=== PATIENT | female | born 1980 | race Two or more races ===

== ENCOUNTER 2016-08-15 17:48 | Emergency (ER) | payer OTHER ==
[~2016-08-15 17:48] MED LIST: ALBUAER2 INH
[2016-08-15 17:57] VITALS: Ht 152.4 cm
[2016-08-15] MEDS ORDERED: ACET-1256 PO (20:15)
[2016-08-15] MEDS ORDERED: NAPR500T3 PO (20:15)
[2016-08-15] MEDS ORDERED: VNTHFA/IN INH (20:15)
[2016-08-15] MEDS ORDERED: SODIUM CHLORIDE 0.9% 1000ML 1,000 ML IV ONE (20:32)
[2016-08-15] MEDS ORDERED: KETOROLAC TROMETHAMINE 30 MG/ML VIAL IV STA (20:32)
[2016-08-15] MEDS ORDERED: SODIUM CHLORIDE 0.9% 1000ML 1,000 ML IV STA (20:32)
--- NOTE | 2016-08-15 20:33 | EMERGENCY ROOM VISIT NOTE ---
History Report prepared by Marcel: Ochoa Bravo Under the Supervision of: Dr. Tyson Asher M.D. First contact with patient: 20:23 Chief Complaint: BACK PAIN Stated Complaint: CHILLS AND ENTIRE BODY ACHES LOWER BACK History of Present Illness The patient is a 36 year old female who presents to the Emergency Room with complaints of pain in her lower back and bodily chills that began this afternoon after a falling episode. The patient states that she fell in the shower this afternoon after experiencing a coughing fit. Following the fall she started to experience the pain in her lower back. She rates this pain as a 7/10 in severity. She is also currently experiencing some tenderness in her abdomen. The patient states that she started to experience a cough and cold symptoms 1.5 weeks prior to arrival, before she left on a trip to [facility]. She returned back form [facility] 9 days prior to this visit. She is still experiencing the congestion at this time. She states that one risk from traveling to [facility] is Malaria. She took Tylenol this afternoon for pain. The patient has had diarrhea today as well. 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 A total of 10 systems reviewed and were otherwise negative. Past Medical & Surgical Medical Problems: (1) Asthma (2) Lupus Family History Patient reports no known family medical history. Social History Smoking Status: Never Smoker Alcohol Use: none Marital Status: Housing Status: lives with significant other Occupation Status: unemployed Current/Historical Medications Scheduled Amoxicillin (Amoxil), 500 MG PO TID Scheduled PRN Acetaminophen (Tylenol), 1 TAB PO BID PRN for Pain or Fever Albuterol Hfa (Ventolin Hfa), 2 PUFFS INH BID PRN for SOB/Wheezing Naproxen (Naproxen), 500 MG PO BID PRN for Pain Allergies Coded Allergies: Pineapple (Verified Allergy, Intermediate, RASH, 09/01/15) Physical Exam Vital Signs Date Time Temp Pulse Resp B/P Pulse Ox O2 Delivery O2 Flow Rate FiO2 08/16/16 00:17 78 20 115/69 98 08/15/16 23:10 36.8 86 16 96/61 98 Room Air 08/15/16 21:28 36.8 86 16 107/70 97 Room Air 08/15/16 20:54 99 Room Air 08/15/16 20:00 66 16 116/77 99 Room Air 08/15/16 17:57 37.7 108 20 117/87 95 Room Air Physical Exam GENERAL: Patient is in no acute distress. HEENT: No acute trauma, normocephalic atraumatic, mucous membranes moist, no nasal congestion, no scleral icterus. NECK: No stridor, no adenopathy, no meningismus, trachea is midline. LUNGS: Clear to auscultation bilaterally, no wheeze, no rhonchi, breath sounds equal. HEART: Tachycardiac with a subtle systolic murmur, regular rate and rhythm. ABDOMEN: Soft, tender to both lower quadrants, bowel sounds positive, no hernias , no peritonitis. BACK: Tenderness diffusely over lumbar spine and musculature. No bony step off appreciated. EXTREMITIES: No cyanosis or edema, full range of motion of all the joints without pain or difficulty, no signs for acute trauma. NEUROLOGIC: Oriented x 3, no acute motor or sensory deficits, no focal weakness. SKIN: No rash, no jaundice, no diaphoresis. Medical Decision & Procedures ER Provider Diagnostic Interpretation: X ray results and stated below per my interpretation and radiologist interpretation. Other radiology results and stated below per my review and radiologist interpretation: CHEST ONE VIEW PORTABLE CLINICAL HISTORY: Sepsis. Chills. Lower back pain. COMPARISON STUDY: Chest radiograph February 14, 2014. FINDINGS: Lung volumes are normal. Lungs are clear. There is no pneumothorax or pleural effusion. Cardiac size is normal. Mediastinal contours are normal. There is no evidence of pulmonary edema. There may be minimal left upper lung scarring. IMPRESSION: No acute cardiopulmonary findings. Electronically signed by: Foster Reid M.D. 08/15/2016 8:47 PM Dictated Date/Time: 08/15/2016 8:46 PM Laboratory Results 08/15/16 20:55 Red Blood Count 4.21, Mean Corpuscular Volume 87.4, Mean Corpuscular Hemoglobin 29.5, Mean Corpuscular Hemoglobin Concent 33.7, Mean Platelet Volume 9.3, Neutrophils (%) (Auto) 82.4, Lymphocytes (%) (Auto) 12.2, Monocytes (%) (Auto) 4.5, Eosinophils (%) (Auto) 0.1, Basophils (%) (Auto) 0.4, Neutrophils # (Auto) 18.79, Lymphocytes # (Auto) 2.77, Monocytes # (Auto) 1.02, Eosinophils # (Auto) 0.02, Basophils # (Auto) 0.09 08/15/16 20:55 Test 08/15/16 20:55 08/15/16 21:10 08/15/16 21:54 08/15/16 23:20 White Blood Count 22.77 K/uL (4.8-10.8) Red Blood Count 4.21 M/uL (4.2-5.4) Hemoglobin 12.4 g/dL (12.0-16.0) Hematocrit 36.8 % (37-47) Mean Corpuscular Volume 87.4 fL (80-100) Mean Corpuscular Hemoglobin 29.5 pg (25-34) Mean Corpuscular Hemoglobin Concent 33.7 g/dl (32-36) Platelet Count 389 K/uL (130-400) Mean Platelet Volume 9.3 fL (7.4-10.4) Neutrophils (%) (Auto) 82.4 % Lymphocytes (%) (Auto) 12.2 % Monocytes (%) (Auto) 4.5 % Eosinophils (%) (Auto) 0.1 % Basophils (%) (Auto) 0.4 % Neutrophils # (Auto) 18.79 K/uL (1.4-6.5) Lymphocytes # (Auto) 2.77 K/uL (1.2-3.4) Monocytes # (Auto) 1.02 K/uL (0.11-0.59) Eosinophils # (Auto) 0.02 K/uL (0-0.5) Basophils # (Auto) 0.09 K/uL (0-0.2) RDW Standard Deviation 40.7 fL (36.4-46.3) RDW Coefficient of Variation 12.6 % (11.5-14.5) Immature Granulocyte % (Auto) 0.4 % Immature Granulocyte # (Auto) 0.08 K/uL (0.00-0.02) Prothrombin Time 11.3 SECONDS (9.0-12.0) Prothromb Time International Ratio 1.1 (0.9-1.1) Activated Partial Thromboplast Time 29.5 SECONDS (21.0-31.0) Partial Thromboplastin Ratio 1.1 Anion Gap 7.0 mmol/L (3-11) Est Creatinine Clear Calc Drug Dose ml/min Estimated GFR () 121.7 Estimated GFR (Non- 105.0 BUN/Creatinine Ratio 12.3 (10-20) Calcium Level 8.9 mg/dl (8.5-10.1) Total Bilirubin 0.3 mg/dl (0.2-1) Aspartate Amino Transf (AST/SGOT) 12 U/L (15-37) Alanine Aminotransferase (ALT/SGPT) 18 U/L (12-78) Alkaline Phosphatase 116 U/L (45-117) Total Protein 8.1 gm/dl (6.4-8.2) Albumin 3.4 gm/dl (3.4-5.0) Globulin 4.7 gm/dl (2.5-4.0) Albumin/Globulin Ratio 0.7 (0.9-2) Bedside Lactic Acid Venous 1.38 mmol/L (0.90-1.70) Influenza Type A Antigen Neg for Influ A (NEG) Influenza Type B Antigen Neg for Influ B (NEG) Urine Color YELLOW Urine Appearance CLEAR (CLEAR) Urine pH 6.5 (4.5-7.5) Urine Specific Clear > 1.045 (1.000-1.030) Urine Protein NEG (NEG) Urine Glucose (UA) NEG (NEG) Urine Ketones NEG (NEG) Urine Occult Blood 1+ (NEG) Urine Nitrite NEG (NEG) Urine Bilirubin NEG (NEG) Urine Urobilinogen NEG (NEG) Urine Leukocyte Esterase NEG (NEG) Urine WBC (Auto) 1-5 /hpf (0-5) Urine RBC (Auto) 0-4 /hpf (0-4) Urine Hyaline Casts (Auto) 1-5 /lpf (0-5) Urine Epithelial Cells (Auto) 10-20 /lpf (0-5) Urine Bacteria (Auto) NEG (NEG) Urine Test NEG (NEG) Laboratory results reviewed by me. Medications Administered Medications (Trade) Dose Ordered Sig/Karina Route Start Time Stop Time Status Last Admin Dose Admin Sodium Chloride (Nss 1000ml) 1,000 ml @ 999 mls/hr Q1H1M ONCE IV 08/15/16 20:32 08/15/16 21:32 DC 08/15/16 20:32 999 MLS/HR Acetaminophen (Tylenol Tab) 650 mg ONE ONCE PO 08/15/16 20:45 08/15/16 20:46 DC 08/15/16 20:51 650 MG Ketorolac Tromethamine 30 mg 30 mg NOW STAT IV 08/15/16 20:32 08/15/16 20:36 DC 08/15/16 20:49 30 MG Sodium Chloride (Nss 1000ml) 1,000 ml @ 200 mls/hr Q5H STAT IV 08/15/16 20:32 08/16/16 00:31 DC 08/15/16 21:45 200 MLS/HR Amoxicillin (Amoxil Cap) 500 mg NOW STAT PO 08/15/16 23:50 08/15/16 23:51 DC 08/16/16 00:12 500 MG ED Course 2024: The patient was evaluated in room C1. A complete history and physical exam was performed. 2031: Ordered Sodium Chloride 1000 mL @ 200 mL/hr IV, Toradol 30 mg IV, Sodium Chloride 1000 mL @ 999 mL/hr IV. 2044: Ordered Tylenol 650 mg PO. 2318: I checked on the patient at this time. The laboratory has lost her urine sample, she was able to give another sample. 2340: Reevaluated the patient. Discussed results and discharge instructions: She verbalized understanding and agreement. The patient is ready for discharge. 2350: Ordered Amoxicillin 500 mg. Medical Decision Differential diagnosis include; viral illness, appendicitis, diverticulitis, urinary tract infection, pneumonia, malaria, dehydration, lumbar fracture. There is a significant leukocytosis at 22,000, this could be consistent with infection. No concerning anemia. No significant electrolyte abnormality, kidney failure, hepatitis. Malaria smear was negative. Chest x-ray does not show pneumonia or pneumothorax. Urinalysis does not show infection. testing is negative. Lumbar spine CT showed no fracture. Abdominal and pelvis CT did not show any acute surgical process. No diverticulitis or appendicitis. Blood cultures are pending. Influenza testing was negative. The patient received IV saline, IV Toradol, oral Tylenol. She was given a dose of oral amoxicillin. The patient looks well, she feels improved. She has an acute febrile illness and a high white count. She's been sick for around 2 weeks with what sounds like a viral illness and then suddenly worsened tonight. I do think treatment with antibiotics for a bacterial superinfection would be warranted. The patient is being placed on amoxicillin 3 times a day for a week. Fluids, rest, fever control has been advised. If worsening, she will return for reassessment. Impression Primary Impression: Fever Additional Impressions: Leukocytosis Lower abdominal pain Lumbar strain Scribe Attestation The scribe's documentation has been prepared under my direction and personally reviewed by me in its entirety. I confirm that the note above accurately reflects all work, treatment, procedures, and medical decision making performed by me. Departure Information Dispostion Home / Self-Care Prescriptions Amoxicillin (AMOXIL) 500 Mg Tab 500 MG PO TID, #21 TAB Prov: Tyson Asher M.D. 08/15/16 Referrals Yusuf Worrell M.D. (PCP) Forms HOME CARE DOCUMENTATION FORM, IMPORTANT VISIT INFORMATION Patient Instructions My [facility] Additional Instructions fluids rest motrin/tylenol for fever and pain amoxicillin 3x per day for 1 week see nova gurrola this week return if worsening as we discussed Problem Qualifiers
[2016-08-15] MEDS ORDERED: ACETAMINOPHEN 325 MG TAB PO ONE (20:45)
[2016-08-15] MEDS ORDERED: OPTIRAY 320 IV PRN (20:45)
--- NOTE | 2016-08-15 20:49 | DIAGNOSTIC IMAGING REPORT ---
CHEST ONE VIEW PORTABLE CLINICAL HISTORY: Sepsis. Chills. Lower back pain. COMPARISON STUDY: Chest radiograph February 14, 2014. FINDINGS: Lung volumes are normal. Lungs are clear. There is no pneumothorax or pleural effusion. Cardiac size is normal. Mediastinal contours are normal. There is no evidence of pulmonary edema. There may be minimal left upper lung scarring. IMPRESSION: No acute cardiopulmonary findings. Electronically signed by: Foster Reid M.D. 08/15/2016 8:47 PM Dictated Date/Time: 08/15/2016 8:46 PM
[2016-08-15 20:54] VITALS: O2SAT 99
[2016-08-15 21:03] LABS: BASO % 0.4 %; BASO ABS # 0.09 K/uL (0-0.2); COMPLETE YES; EOS % 0.1 %; HEMATOCRIT 36.8 % (37-47); IG% 0.4 %; LYMPH % 12.2 %; LYMPH ABS # 2.77 K/uL (1.2-3.4); MEAN CELL VOLUME 87.4 fL (80-100); MEAN CORPUSCULAR HEMOGLOBIN 29.5 pg (25-34); MEAN CORPUSCULAR HGB CONC 33.7 g/dl (32-36); MEAN PLATELET VOLUME 9.3 fL (7.4-10.4); MONO % 4.5 %; NEUT % 82.4 %; PLATELET COUNT 389 K/uL (130-400); RED BLOOD COUNT 4.21 M/uL (4.2-5.4); WHITE BLOOD COUNT 22.77 K/uL (4.8-10.8)
[2016-08-15 21:18] LABS: INR 1.1 (0.9-1.1); PARTIAL THROMBOPLASTIN RATIO 1.1; PROTHROMBIN TIME (PATIENT) 11.3 SECONDS (9.0-12.0)
[2016-08-15 22:03] LABS: ALB/GLOB RATIO 0.7 (0.9-2); ALKALINE PHOSPHATASE 116 U/L (45-117); ALT/SGPT 18 U/L (12-78); AST/SGOT 12 U/L (15-37); BLOOD UREA NITROGEN 9 mg/dl (7-18); BUN/CREATININE RATIO 12.3 (10-20); CALCIUM 8.9 mg/dl (8.5-10.1); CARBON DIOXIDE 27 mmol/L (21-32); CHLORIDE 102 mmol/L (98-107); CREATININE 0.74 mg/dl (0.60-1.20); GLUCOSE 156 mg/dl (70-99); POTASSIUM 3.4 mmol/L (3.5-5.1); SODIUM 136 mmol/L (136-145)
--- NOTE | 2016-08-15 22:21 | DIAGNOSTIC IMAGING REPORT ---
CT OF THE ABDOMEN AND PELVIS WITH CONTRAST CLINICAL HISTORY: Abdominal pain. Chills. COMPARISON STUDY: CT of the abdomen and pelvis October 27, 2014 and pelvic ultrasound September 01, 2015 TECHNIQUE: Following IV administration of 118 mL of [id number], axial images of the abdomen and pelvis were obtained from the lung bases to the proximal femurs. Images were reviewed in the axial, sagittal, and coronal planes. IV contrast was administered without complication. CT DOSE: 282.10 mGy.cm FINDINGS: The liver, spleen, adrenal glands, kidneys and pancreas are normal with exception of a 4 mm nonobstructing calculus within the upper pole of the right kidney. There are no ureteral calculi. There is no hydronephrosis. The caliber and wall thickness of small and large bowel are normal. The appendix is normal. There is no free fluid. No lymphadenopathy is present. The lumbar spine CT will be reported separately. IMPRESSION: 1. No acute process within the abdomen or pelvis. Normal appendix. 2. 4 mm nonobstructing right renal calculus. No ureteral calculi. Electronically signed by: Foster Reid M.D. 08/15/2016 10:19 PM Dictated Date/Time: 08/15/2016 10:12 PM
--- NOTE | 2016-08-15 22:24 | DIAGNOSTIC IMAGING REPORT ---
CT OF THE LUMBAR SPINE CLINICAL HISTORY: Fall. Back pain. TECHNIQUE: Axial images of the lumbar spine were obtained. Sagittal and coronal reconstructions were viewed. COMPARISON STUDY: None. FINDINGS: Alignment of the lumbar spine is anatomic. Vertebral body heights are maintained. There is no acute fracture. Facet joints are intact. Sacroiliac joints are intact. Paravertebral soft tissues are unremarkable. Central canal and neural foramen are suboptimally assessed by CT but appear patent. IMPRESSION: No acute lumbar spine fracture or subluxation. Unremarkable lumbar spine CT. Electronically signed by: Foster Reid M.D. 08/15/2016 10:22 PM Dictated Date/Time: 08/15/2016 10:20 PM
[2016-08-15 23:10] VITALS: TEMP 36.8
[2016-08-15 23:34] LABS: URINE APPEARANCE CLEAR (CLEAR); URINE BILIRUBIN NEG (NEG); URINE COLOR YELLOW; URINE NITRITE NEG (NEG); URINE PH 6.5 (4.5-7.5); URINE SPECIFIC GRAVITY > 1.045 (1.000-1.030); UROBILINOGEN NEG (NEG); ZZUR CULT IF INDIC CLEAN CATCH NO
[2016-08-15 23:36] LABS: MANUAL MICROSCOPIC REQUIRED? NO; REVIEW REQ? NO
[2016-08-15] MEDS ORDERED: AMOXICILLIN 250 MG CAP PO STA (23:50)
[2016-08-15] MEDS ORDERED: AMOX500T3 PO (23:53)
[2016-08-16 00:17] VITALS: BP 115/69; PULSE 78; O2SAT 98
== END 2016-08-16 00:18 | disposition home or self-care (01) ==
LOC: C.EDB 17:50 → C.EDC 08-16 00:18
DX: S39.012A Strain of muscle, fascia and tendon of lower back, initial encounter (principal); W19.XXXA Unspecified fall, initial encounter; D72.829 Elevated white blood cell count, unspecified; J45.909 Unspecified asthma, uncomplicated; Z91.018 Allergy to other foods

== ENCOUNTER 2023-04-28 15:54 | Inpatient (IN) ==
[2023-04-28 16:26] LABS: Basophils # (auto) 0.12 K/uL (0.00-0.20); Basophils % (auto) 1.1 %; Eosinophils # (auto) 0.21 K/uL (0.00-0.50); Eosinophils % (auto) 1.9 %; Hemoglobin 12.1 g/dl (12.0-16.0); Immature Granulocytes # (auto) 0.02 K/uL (0.01-0.20); Immature Granulocytes % (auto) 0.2 %; Lymphocytes # (auto) 3.07 K/uL (1.20-3.40); Lymphocytes % (auto) 27.6 %; Mean Corpuscular Hemoglobin 26.8 pg (25.0-34.0); Mean Corpuscular Hgb Conc 32.7 g/dL (32.0-36.0); Mean Platelet Volume 9.6 fL (9.4-12.4); Monocytes # (auto) 0.64 K/uL (0.11-0.59); Monocytes % (auto) 5.8 %; Neutrophils # (auto) 7.07 K/uL (1.40-6.50); Neutrophils % (auto) 63.4 %; Platelet Count 423 K/uL (130-400); RDW Coefficient of Variation 13.7 % (11.5-14.5); RDW Standard Deviation 40.8 fL (36.4-46.3); Red Blood Count 4.51 M/uL (4.20-5.40); White Blood Count 11.13 K/ul (4.8-10.8)
[2023-04-28 16:43] LABS: Albumin Globulin Ratio 1.1 (0.9-2); Albumin Level 4.7 gm/dl (3.4-5.0); BUN Creatinine Ratio 27.4 (10-20); Bilirubin,Total 0.2 mg/dl (0.2-1.0); Calcium 10.1 mg/dl (8.6-10.3); Creatinine Clr Calc Pharmacy 87.5 ml/min; Est GFR (African American) 118.6 ml/min; Est GFR (Non-African American) 102.3 ml/min; Globulin 4.1 gm/dl (2.5-4.0); Potassium 3.7 mmol/L (3.5-5.1); Total Protein 8.8 gm/dl (6.0-8.3)
--- NOTE | 2023-04-28 16:43 | XRay Report ---
XR chest 1V not portable CLINICAL HISTORY: Chest pain, nonspecific TECHNIQUE: Single frontal radiograph of the chest was obtained. Comparison: Comparison is made to chest radiograph 07/26/2016 FINDINGS: No lines and tubes are seen. The cardiomediastinal silhouette is normal. The lungs are clear. No evid ence of pleural effusion or pneumothorax. IMPRESSION: No acute chest disease. ACT 112: Negative or not required by law. Electronically signed by: Curtis Parker M.D. 04/28/2023 4:42 PM
[2023-04-28 16:49] LABS: Troponin I High Sensitivity 3.8 pg/ml (0-14)
[2023-04-28 16:58] LABS: INR 0.9 (0.9-1.1); Partial Thromboplastin Ratio 0.9; Partial Thromboplastin Time 26 Seconds (21-31); Prothrombin Time 10.1 Seconds (9.0-12.0)
--- NOTE | 2023-04-28 17:00 | CT Scan Report ---
CT SCAN OF THE BRAIN WITHOUT IV CONTRAST CLINICAL HISTORY: Headache. Hypertension. COMPARISON STUDY: No priors. TECHNIQUE: Unenhanced axial CT scan of the brain is performed from the vertex to the skull base. A d ose lowering technique was utilized adhering to the principles of ALARA. CT DOSE: 547.75 mGy.cm FINDINGS: Brain parenchyma: The brain parenchyma is normal in appearance. There is no hemorrhage, mass effect, or evidence of acute territorial ischemia by CT criteria. Smart-white matter differentiation is preser jennifer. No extra-axial fluid collection is seen. Ventricles, sulci, cisterns: Normal in configuration. Intracranial vasculature: The visualized intracranial vasculature at the skull base is normal in appe arance. Calvarium: Unremarkable. Sinuses and mastoids: The visualized paranasal sinuses are clear. The mastoid air cells are well pneu matized. Orbits: The bony orbits are grossly intact. IMPRESSION: No acute intracranial abnormality. ACT 112: Negative or not required by law. Electronically signed by: Tyson Person M.D. 04/28/2023 4:59 PM
[2023-04-28] MEDS ORDERED: LABETALOL HCL IV 5 MG/ML 20ML IV STA ×2 (17:01→17:52)
--- NOTE | 2023-04-28 17:01 | Emergency Department Note ---
Impression & Plan Hypertensive urgency, Headache, Dizziness, Chest pressure ED Provider Note NAME: LORENA WHITAKER AGE: 42 SEX: F : 1980 ARRIVES VIA: Walk-In INFORMANT: [Patient] ED PROVIDER(S): [Tyson Asher MD] CHIEF COMPLAINT: Hypertension HISTORY OF PRESENT ILLNESS: The patient is a 42-year-old female who had gone to her [employer] doctor today for a checkup for an issue with her cervix. Her blood pressure was high and from there, she was referred to her family doctor's office. Her blood pressure was quite high at the family doctor's office. The patient was given 50 mg of losartan/12.5 mg of hydrochlorothiazide. After an hour, the pressure was still high and she was referred to the ER. Yesterday, the patient felt dizzy with some chest pressure and she had a headache. She does not seem to have those symptoms today. There is a family history of hypertension on her mother side. PMHx/PSHx/Social Hx: See Below PHYSICAL EXAM: GENERAL: Patient is in no acute distress. HEENT: No acute trauma, normocephalic atraumatic, mucous membranes moist, no nasal congestion. NECK: No stridor, no adenopathy, no meningismus, trachea is midline. LUNGS: Clear to auscultation bilaterally, no wheeze, no rhonchi, breath sounds equal. HEART: Without murmurs gallops or rubs, regular rate and rhythm. ABDOMEN: Soft, nontender, no peritonitis. EXTREMITIES: No cyanosis, full range of motion of all the joints without pain or difficulty. NEUROLOGIC: Oriented x 3, no acute motor or sensory deficits, no focal weakness. SKIN: No jaundice, no diaphoresis. DIFFERENTIAL DIAGNOSIS: Hypertension, renal failure, electrolyte imbalance, cardiac ischemia, intracranial bleeding, among others. EMERGENCY DEPARTMENT PROCEDURES: MEDICAL DECISION MAKING: There is a mild leukocytosis, this could be consistent with infection or just the stress of her presentation. There is a normal hemoglobin. Platelet count slightly elevated. No coagulopathy. Sodium is slightly low but not in need of emergent correction. No renal failure. No concerning liver enzyme elevation. ECG shows a normal sinus rhythm, no ischemia. Cardiac enzyme testing x 1 is not consistent with acute cardiac injury. Chest x-ray does not show mediastinal widening, pneumonia or pneumothorax. Brain CT shows no acute bleed or mass effect. On exam, there were no focal neurologic deficits. The patient was quite hypertensive. Patient was given IV labetalol 10 mg, a repeat 10 mg dose was given. She then received 10 mg of IV hydralazine. The patient's blood pressure is persistently high despite the 3 different doses of IV antihypertensive medication. She also had received a dose of oral losartan/hydrochlorothiazide prior to arrival. Given the persistently elevated blood pressure, I do think the patient requires a hospital stay. It may be quite difficult to find the right medication or medications required to keep her blood pressure controlled. I spoke with the patient and case management, the on-call hospitalist was consulted. Prior/Outside records/notes reviewed: ECG per my interpretation: Indication was hypertension. The ECG shows a normal sinus rhythm with a rate of 74. There is no ST elevation, no PVCs. The QTc is 435. Continuous Cardiac Monitoring per my interpretation: An order was placed for continuous cardiac monitoring. The monitor shows a rate of 89 with normal sinus rhythm. Imaging/x-ray results per my interpretation: Chest x-ray does not show mediastinal widening, pneumonia or pneumothorax. Chronic Medical/Social conditions affecting care: Care/Management discussed with: Case management, the on-call hospitalist. Level of care consideration(s): After review of the information above and other included data: --I believe the patient requires escalation of care to admission DISPOSITION: Admission Past Med/Surg History Medical History Pyelonephritis Asthma Social History Smoking Status: Never smoker Feels Safe at Home: Yes Allergies Allergies Allergy/AdvReac Type Severity Reaction Status Date / Time pineapple Allergy Intermediate RASH Verified 09/01/15 13:26 Home Meds Home Medications Medication Instructions Recorded Confirmed losartan 50 mg-hydrochlorothiazide 1 tab PO DAILY 04/28/23 04/28/23 12.5 mg tablet Results & Data (ED) Vital Signs Vital Signs - 24 hr 04/28/23 15:57 04/28/23 17:03 04/28/23 17:04 Temperature 36.9 C Temperature Source Temporal Artery Scan Pulse Rate 89 72 72 Pulse Rate from SpO2 Sensor 73 Respiratory Rate 18 14 Respiratory Effort / Characteristics Non-Labored Spontaneous Respiratory Depth Normal Blood Pressure 217/139 H 194/123 H Blood Pressure Mean 165 Blood Pressure Position Sitting Pulse Oximetry 98 98 Oxygen Delivery Method Room Air Sepsis Recent Fever Within 48 Hours No Sepsis New/Unexplained Change in Mental Status N/A Sepsis Action Taken by Nursing No Action Required 04/28/23 17:06 04/28/23 17:07 04/28/23 17:07 Temperature Temperature Source Pulse Rate 71 76 Pulse Rate from SpO2 Sensor 75 Respiratory Rate 17 Respiratory Effort / Characteristics Respiratory Depth Blood Pressure 162/108 H Blood Pressure Mean 137 Blood Pressure Position Pulse Oximetry 97 Oxygen Delivery Method Sepsis Recent Fever Within 48 Hours Sepsis New/Unexplained Change in Mental Status Sepsis Action Taken by Nursing 04/28/23 17:14 04/28/23 17:15 04/28/23 17:15 Temperature Temperature Source Pulse Rate 92 H Pulse Rate from SpO2 Sensor 89 Respiratory Rate 24 Respiratory Effort / Characteristics Respiratory Depth Blood Pressure 175/113 H Blood Pressure Mean 149 Blood Pressure Position Pulse Oximetry 98 98 Oxygen Delivery Method Room Air Sepsis Recent Fever Within 48 Hours Sepsis New/Unexplained Change in Mental Status Sepsis Action Taken by Nursing 04/28/23 17:19 04/28/23 17:30 04/28/23 17:30 Temperature Temperature Source Pulse Rate 73 75 Pulse Rate from SpO2 Sensor 73 Respiratory Rate 12 Respiratory Effort / Characteristics Respiratory Depth Blood Pressure 174/120 H 162/116 H Blood Pressure Mean 146 Blood Pressure Position Pulse Oximetry 100 Oxygen Delivery Method Sepsis Recent Fever Within 48 Hours Sepsis New/Unexplained Change in Mental Status Sepsis Action Taken by Nursing 04/28/23 17:45 04/28/23 17:45 04/28/23 18:00 Temperature Temperature Source Pulse Rate 79 75 Pulse Rate from SpO2 Sensor 79 76 Respiratory Rate 14 13 Respiratory Effort / Characteristics Respiratory Depth Blood Pressure 174/120 H Blood Pressure Mean 141 Blood Pressure Position Pulse Oximetry 99 100 Oxygen Delivery Method Sepsis Recent Fever Within 48 Hours Sepsis New/Unexplained Change in Mental Status Sepsis Action Taken by Nursing 04/28/23 18:00 04/28/23 18:15 04/28/23 18:15 Temperature Temperature Source Pulse Rate 78 Pulse Rate from SpO2 Sensor 78 Respiratory Rate 16 Respiratory Effort / Characteristics Respiratory Depth Blood Pressure 184/122 H 191/121 H Blood Pressure Mean 157 147 Blood Pressure Position Pulse Oximetry 99 Oxygen Delivery Method Sepsis Recent Fever Within 48 Hours Sepsis New/Unexplained Change in Mental Status Sepsis Action Taken by Nursing 04/28/23 19:00 04/28/23 19:15 04/28/23 19:45 Temperature Temperature Source Pulse Rate 84 85 87 Pulse Rate from SpO2 Sensor 80 77 88 Respiratory Rate 21 21 15 Respiratory Effort / Characteristics Respiratory Depth Blood Pressure 203/133 H 191/119 H 157/100 H Blood Pressure Mean 146 143 119 Blood Pressure Position Pulse Oximetry 100 97 98 Oxygen Delivery Method Sepsis Recent Fever Within 48 Hours Sepsis New/Unexplained Change in Mental Status Sepsis Action Taken by Nursing 04/28/23 20:00 04/28/23 20:00 04/28/23 20:15 Temperature Temperature Source Pulse Rate 92 H 93 H Pulse Rate from SpO2 Sensor 91 H 91 H Respiratory Rate 15 12 Respiratory Effort / Characteristics Respiratory Depth Blood Pressure 157/104 H Blood Pressure Mean 128 Blood Pressure Position Pulse Oximetry 99 99 Oxygen Delivery Method Sepsis Recent Fever Within 48 Hours Sepsis New/Unexplained Change in Mental Status Sepsis Action Taken by Nursing 04/28/23 20:15 Temperature Temperature Source Pulse Rate Pulse Rate from SpO2 Sensor Respiratory Rate Respiratory Effort / Characteristics Respiratory Depth Blood Pressure 162/105 H Blood Pressure Mean 134 Blood Pressure Position Pulse Oximetry Oxygen Delivery Method Sepsis Recent Fever Within 48 Hours Sepsis New/Unexplained Change in Mental Status Sepsis Action Taken by [facility] Medications Current Medication List: was personally reviewed by me Laboratory Data Attestation: I reviewed the patient's lab results. 04/28/23 16:07 04/28/23 16:07 Lab Results 04/28/23 Range/Units 16:07 WBC 11.13 H (4.8-10.8) K/ul RBC 4.51 (4.20-5.40) M/uL Hgb 12.1 (12.0-16.0) g/dl Hct 37.0 (37.0-47.0) % MCV 82.0 (80.0-100.0) fL MCH 26.8 (25.0-34.0) pg MCHC 32.7 (32.0-36.0) g/dL RDW Std Deviation 40.8 (36.4-46.3) fL RDW Coeff of Desire 13.7 (11.5-14.5) % Plt Count 423 H (130-400) K/uL MPV 9.6 (9.4-12.4) fL Immature Gran % (Auto) 0.2 % Neut % (Auto) 63.4 % Lymph % (Auto) 27.6 % Carroll % (Auto) 5.8 % Eos % (Auto) 1.9 % Baso % (Auto) 1.1 % Neut # (Auto) 7.07 H (1.40-6.50) K/uL Lymph # (Auto) 3.07 (1.20-3.40) K/uL Carroll # (Auto) 0.64 H (0.11-0.59) K/uL Eos # (Auto) 0.21 (0.00-0.50) K/uL Baso # (Auto) 0.12 (0.00-0.20) K/uL Immature Gran # (Auto) 0.02 (0.01-0.20) K/uL PT 10.1 (9.0-12.0) Seconds INR 0.9 (0.9-1.1) APTT 26 (21-31) Seconds PTT Ratio 0.9 Sodium 134 L (136-145) mmol/L Potassium 3.7 (3.5-5.1) mmol/L Chloride 101 (98-107) mmol/L Carbon Dioxide 25 (21-32) mmol/L Anion Gap 8 (3-11) BUN 20 (6-23) mg/dl Creatinine 0.73 (0.6-1.2) mg/dl Est Cr Clr Drug Dosing 87.5 ml/min Est GFR ( Amer) 118.6 ml/min Est GFR (Non-Af Amer) 102.3 ml/min BUN/Creatinine Ratio 27.4 H (10-20) Glucose 102 H (70-99(Fasting)) mg/dl Calcium 10.1 (8.6-10.3) mg/dl Total Bilirubin 0.2 (0.2-1.0) mg/dl AST 16 (13-39) U/L ALT 10 (7-52) U/L Alkaline Phosphatase 101 (34-104) U/L Troponin I High Sens 3.8 (0-14) pg/ml Total Protein 8.8 H (6.0-8.3) gm/dl Albumin 4.7 (3.4-5.0) gm/dl Globulin 4.1 H (2.5-4.0) gm/dl Albumin/Globulin Ratio 1.1 (0.9-2) Administered Medications Discontinued Medications Hydralazine HCl (Hydralazine Hcl 20 Mg/Ml Vial) 10 mg IV NOW STA Stop: 04/28/23 19:02 Last Admin: 04/28/23 19:11 Dose: 10 mg Documented By: JEAN MARIE Labetalol HCl (Labetalol Hcl Iv 5 Mg/Ml 20ml) 10 mg IV NOW STA Stop: 04/28/23 17:02 Last Admin: 04/28/23 17:04 Dose: 10 mg Documented By: IBETH Co-signed By: TATIANA Labetalol HCl (Labetalol Hcl Iv 5 Mg/Ml 20ml) 10 mg IV NOW STA Stop: 04/28/23 17:53 Last Admin: 04/28/23 18:15 Dose: 10 mg Documented By: IBETH Co-signed By: TAY Imaging Data Radiologist's Impression: Chest X-Ray 04/28/23 16:03 XR chest 1V not portable CLINICAL HISTORY: Chest pain, nonspecific TECHNIQUE: Single frontal radiograph of the chest was obtained. Comparison: Comparison is made to chest radiograph 07/26/2016 FINDINGS: No lines and tubes are seen. The cardiomediastinal silhouette is normal. The lungs are clear. No evidence of pleural effusion or pneumothorax. IMPRESSION: No acute chest disease. ACT 112: Negative or not required by law. Electronically signed by: Curtis Parker M.D. 04/28/2023 4:[address] 04/28/23 16:40 CT SCAN OF THE BRAIN WITHOUT IV CONTRAST CLINICAL HISTORY: Headache. Hypertension. COMPARISON STUDY: No priors. TECHNIQUE: Unenhanced axial CT scan of the brain is performed from the vertex to the skull base. A dose lowering technique was utilized adhering to the principles of ALARA. CT DOSE: 547.75 mGy.cm FINDINGS: Brain parenchyma: The brain parenchyma is normal in appearance. There is no hemorrhage, mass effect, or evidence of acute territorial ischemia by CT criteria. Smart-white matter differentiation is preserved. No extra-axial fluid collection is seen. Ventricles, sulci, cisterns: Normal in configuration. Intracranial vasculature: The visualized intracranial vasculature at the skull base is normal in appearance. Calvarium: Unremarkable. Sinuses and mastoids: The visualized paranasal sinuses are clear. The mastoid air cells are well pneumatized. Orbits: The bony orbits are grossly intact. IMPRESSION: No acute intracranial abnormality. ACT 112: Negative or not required by law. Electronically signed by: Tyson Person M.D. 04/28/2023 4:59 PM Discharge Plan Visit Data Chief Complaint: Hypertension Stated Complaint: HIGH BP, REFFERED BY DOCTOR ED Provider: Tyson Asher Discharge Problem: Hypertensive urgency, Headache, Dizziness, Chest pressure Patient Disposition: Admitted As Inpatient Condition: Fair Forms Stand Alone Forms: [employer] Prescriptions Prescriptions: No Action losartan-hydrochlorothiazide 50-12.5 mg tablet 1 tab PO DAILY Referrals Referrals: Yusuf Worrell MD [Physician] - Discharge Problem: Headache Qualifiers: Headache type: unspecified Headache chronicity pattern: acute headache I ntractability: not intractable Qualified Code(s): R51.9 - Headache, unspecified
[2023-04-28] MEDS ORDERED: hydrALAZINE HCL 20 MG/ML VIAL IV STA (19:01)
--- OUTSIDE RECORDS SUMMARY | 2023-04-28 20:06 | External Medical Summary ---
Author Name Unknown Address Unknown Organization [facility] [address] [place] [address] Laboratory Report Ordering Provider Test Date Status SHERRI HAMM 04/28/2023 14:04:32 Final Observation Date Value Abnormality Reference (Units ) Status WBC, Total 04/28/2023 14:04:32 10.28 4.00-10.8 0 (K/uL) Final RBC 04/28/2023 14:04:32 4.43 3.85-5.15 (M/uL) Final Hemoglobin 04/28/2023 14:04:32 12.1 12.0-15.3 (g/dL) Final HCT 04/28/2023 14:04:32 37.8 36.0-45.2 (%) Final MCV 04/28/2023 14:04:32 85.3 81.5-97.5 (fL) Final MCH 04/28/2023 14:04:32 27.3 27.0-34.0 (pg) Final MCHC 04/28/2023 14:04:32 32.0 32.0-36.0 (g/dL) Final RDW 04/28/2023 14:04:32 13.9 11.5-15.5 (%) Final Platelets 04/28/2023 14:04:32 437 Above high normal 14 0-400 (K/uL) Final MPV 04/28/2023 14:04:32 9.5 6.6-11.1 ( fL) Final Performing Location [facility] [address] [place] [address]
--- OUTSIDE RECORDS SUMMARY | 2023-04-28 20:06 | External Medical Summary ---
Author Name Unknown Address Unknown Organization [facility] [address] [place] [address] Laboratory Report Ordering Provider Test Date Status SHERRI HAMM 04/28/2023 14:04:32 Final Observation Date Value Abnormality Reference (Units ) Status SYNC LEUKOCYTES IN BLOOD BY AUTOMATED COUNT 04/28/2023 14:04:32 10.28 4.00-10.80 (K/uL) Final Segs 04/28/2023 14:04:32 67.9 40.0-75.0 (%) Final Lymphs % 04/28/2023 14:04:32 23.9 18.0-42.0 (%) Final Monos 04/28/2023 14:04:32 5.5 1.0-11.0 (%) Final Eosinophils 04/28/2023 14:04:32 1.7 0.0-6.0 (%) Final Basos 04/28/2023 14:04:32 1.0 0.0-2.0 (%) Final Absolute Segs 04/28/2023 14:04:32 6.98 1.80-7.70 (K/uL) Final Lymphs, absolute 04/28/2023 14:04:32 2.46 1.00-4.80 (K/ul) Final Monos, Abs 04/28/2023 14:04:32 0.57 0.00-1.10 (K/uL) Final Eos, Abs 04/28/2023 14:04:32 0.17 0.00-0.70 (K/uL) Final Basos, Abs 04/28/2023 14:04:32 0.10 0.00-0.20 (K/uL) Final Performing Location [facility] [place] [address]
--- OUTSIDE RECORDS SUMMARY | 2023-04-28 20:06 | External Medical Summary ---
Author Name Unknown Address Unknown Organization [facility] [address] [place] [address] Laboratory Report Ordering Provider Test Date Status SHERRI HAMM 04/28/2023 14:04:32 Final Observation Date Value Abnormality Reference (Units ) Status BUN 04/28/2023 14:04:32 17 6-20 (mg/dL) Final Creatinine 04/28/2023 14:04:32 0.8 0.5-1.0 (mg/dL) Final Glomerular filtration rate/1.73 sq M.predicted [Volume Rate/Area] in Serum, Plasma or Blood by Creatinine-based formula (CKD-EPI) 04/28/2023 14:04:32 >90 >=60 (mL/min) Final eGFR is calculated based on the CKD-EPI 2020 equation SODIUM 04/28/2023 14:04:32 139 135-146 (m mol/L) Final Potassium 04/28/2023 14:04:32 4.1 3.5-5.1 (m mol/L) Final Cl 04/28/2023 14:04:32 101 98-107 (mm ol/L) Final CO2 04/28/2023 14:04:32 26 22-32 (mmo l/L) Final Anion gap 04/28/2023 14:04:32 12 7-15 (mmol /L) Final Glucose 04/28/2023 14:04:32 96 70-120 (mg /dL) Final Albumin 04/28/2023 14:04:32 4.6 3.8-5.0 (g /dL) Final AST (Aspartate aminotransferase) 04/28/2023 14:04:32 17 10-35 (U/L) Fin al Alk Phos 04/28/2023 14:04:32 114 35-130 (U/ L) Final Bilirubin, Total 04/28/2023 14:04:32 <0.2 <=1 .2 (mg/dL) Final Calcium 04/28/2023 14:04:32 10.3 Above high normal 8. 4-10.2 (mg/dL) Final Protein 04/28/2023 14:04:32 8.1 6.0-8.3 (g /dL) Final ALT (Alanine aminotransferase) 04/28/2023 14:04:32 13 10-35 (U/L) Betito mazariegos Performing Location [facility] [address] [facility] [address]
--- OUTSIDE RECORDS SUMMARY | 2023-04-28 20:06 | External Medical Summary | Summary of Care ---
Author Name Unknown Organization [facility] Address [address] [address] Phone [phone] Care Team Providers Care Cupola Mechanic Name Role Phone Rodriguez QIU DO, Harold Winton Primary Care Provi deborah Reason for Visit * Reason Onset Date Comments Test Results 03/31/2023 Encounter Details Date Type Department Care Team (Late st Contact Info) Description 03/31/2023 Telephone Gynecology/Obstetrics [facility] [address] [place] [address] BackLupe olson CRNP [address] [place] [id number] Test Results Allergies No known active allergiesdocumented as of this encounter (statuses as of 03/31/2023) Medications Medication Sig Dispensed Refills Start Date End Date Status Melatonin ER 1 MG Oral Tablet Extended ReleaseIndications:In somnia, unspecified type daily1 tab at bedtime daily, if not improved may increase upto 5 mg daily 1 Tablet 0 10/15/2022 Active documented as of this encounter (statuses as of 03/31/2023) Active Problems Problem Noted Date Diagnosed Date Dysplasia of cervix, high grade ROXANNE 2 03/31/2023 Dysplasia of cervix, low grade (ROXANNE 1) 2 Overview: Repeat pap 2022 documented as of this encounter (statuses as of 03/31/2023) Social History Tobacco Use Types Packs/Day Years Used Date Smoking Tobacco: Never Smokeless Tobacco: Never Alcohol Use Standard Drinks/Week Comments Yes 0 (1 standard drink = 0.6 oz pur e alcohol) very rare Hunger Vital Sign Answer Date Recorded Within the past 12 months, y ou worried that your food would run out before you got the money to buy more. Never true 02/16/20 23 Within the past 12 months, t he food you bought just didn't last and you didn't have money to get more. Never true 02/15/2023 Sex and Gender Information Value Date Recorded Sex Assigned at Female 12/09/2021 7:14 AM EDT Gender Identity Female 12/09/2021 7:14 AM EDT Sexual Orientation Straight 12/09/2021 7: 14 AM EDT Job Start Date Occupation Industry Not on file Not on file Not on file documented as of this encounter Miscellaneous Notes * Telephone Encounter - Esther Ma RN - 03/31/2023 11:52 AM EST Spoke with pt and appt made. * Telephone Encounter - Lupe Villa CRNP - 03/31/2023 11:37 AM EST One of her cervical biopsies shows high grade dysplasia, which is considered pre-cancerous. Recommend appt w/MD to discuss treatment. EMB benign. PRASHANTH Becerra documented in this encounter Plan of Treatment Upcoming Encounters Date Type Department Care Team (Late st Contact Info) Description 04/28/2023 11:00 AM EST Office Visit Gynecology/Obstetrics [facility] [address] [place] [address] Jasbir Linares MD [address] [place] [address] 04/29/2023 10:30 AM EST Imaging Radiology [facility] [facility] [address] [place] [address] 11/02/2023 10:00 AM EDT Office Visit Gynecology/Obstetrics Joanna Aragon [address] [place] [address] Carey Sainz PA-C [address] [place] [address] Health Maintenance Due Date Last Done Comments Diabetes Screening 1980 Hepatitis B (1 of 3 - 3-dose series) 1980 Lipid Panel 1980 COVID-19 Vaccine (#1) 1980 Depression Screening 1993 DTaP,Tdap,and Td Vaccines (1 - Tdap) 2000 Mammogram 12/13/2022 12/13/2021 Influenza Vaccine (FLU shot) (#1) 2022 Pap Smear 10/27/2025 10/27/2022, 12/10/2021 Cervical Cancer Screening 10/28/2027 HPV/Co-Test 10/28/2027 10/27/2022 GARDASIL-HPV IMMUNIZATION SERIES Aged Out No longer eligible b ased on patient's age to complete this topic MENINGOCOCCAL (MENACTRA/MENVEO) Aged Out No longer eligible b ased on patient's age to complete this topic Pneumococcal Vaccine: Pediatrics (0 to 5 Years) and At-Risk Patients (6 to 64 Years) Aged Out No longer eligible b ased on patient's age to complete this topic documented as of this encounter Medical Devices Not on filedocumented as of this encounter Care Teams Cupola Mechanic Relationship Specialty Start Date End Date Timur Frias II, DO [address] [facility], [place] [address] PCP - General Family Medicine 12/22/13 documented as of this encounter
--- OUTSIDE RECORDS SUMMARY | 2023-04-28 20:07 | External Medical Summary | Summary of Care ---
Author Name Unknown Organization [facility] Address [address] [facility] [place] [address] Phone [phone] Care Team Providers Care Wanigan Clerk Name Role Phone Rodriguez QIU DO, Harold Winton Primary Care Provi deborah Encounter Details Date Type Department Care Team Description 11/06/2022 Telephone Gynecology/Obstetrics [facility] [address] [facility] [place] [address] Holly Rose, JOSTIN [address] [facility] [place] [address] Allergies No known active allergiesdocumented as of this encounter (statuses as of 11/11/2022) Medications Medication Sig Dispensed Refills Start Date End Date Status Melatonin ER 1 MG Oral Tablet Extended ReleaseIndications:I nsomnia, unspecified type daily1 tab at bedtime daily, if not improved may increase upto 5 mg daily 1 Tablet 0 10/15/2022 Active metroNIDAZOLE 500 MG Oral Tablet (Flagyl)Indications: BV (bacterial vaginosis) Take 1 Tablet by mouth in the morning and 1 Tablet before bedtime. X 7 days until gone.. 14 Tablet 0 10/29/2022 Active Doxycycline Hyclate 100 MG Oral Capsule Take 1 Capsule by mouth in the morning and 1 Capsule before bedtime. Before or after meals for seven days.. 14 Capsule 0 10/29/2022 Active documented as of this encounter (statuses as of 11/11/2022) Active Problems Problem Noted Date Dysplasia of cervix, low grade (ROXANNE 1) 0 01/07/2022 Overview: Repeat pap 2022 documented as of this encounter (statuses as of 11/11/2022) Social History Tobacco Use Types Packs/Day Years Used Date Smoking Tobacco: Never Smokeless Tobacco: Never Alcohol Use Standard Drinks/Week Comments Yes 0 (1 standard drink = 0.6 oz pur e alcohol) very rare Food Insecurity Answer Date Recorded Within the past 12 months, y ou worried that your food would run out before you got money to buy more. Never true 10/14/2022 Within the past 12 months, t he food you bought just didn't last and you didn't have money to get more. Never true 10/14/2022 Sex Assigned at Date Recorded Female 12/09/2021 7:14 AM E DT Job Start Date Occupation Industry Not on file Not on file Not on file documented as of this encounter Miscellaneous Notes * Telephone Encounter - Sarita Morgan RN - 11/06/2022 11:44 AM EDT Attempted to call patient. No answer, LVM to return call. * Telephone Encounter - Sarita Morgan RN - 11/06/2022 10:30 AM EDT ----- Message from Holly Rose CNM sent at 11/06/2022 10:28 AM EDT ----- Please let patient know her pap smear was abnormal showing atypical glandular cells. Her HPV testing was negative. Her syphilis screening was also negative. Her pelvic ultrasound showed an improvement in her fibroids and was otherwise normal. Please schedule a colposcopy and endometrial biopsy at her earliest convenience. She should take ibuprofen starting 24 hours prior to EMB and make sure she is well hydrated. Thank you! Holly Rose CNM documented in this encounter Plan of Treatment Upcoming Encounters Date Type Specialty Care Team Description 12/16/2022 Imaging Radiology 12/18/2022 Office Visit Internal Medicine Olivia Whalen MD [address] [place] [address] 02/16/2023 Office Visit Gynecology Obstetrics Carey Sainz PA-C [address] [place] [address] 11/02/2023 Office Visit Gynecology Obstetrics Carey Sainz PA-C [address] [place] [address] Health Maintenance Due Date Last Done Comments Diabetes Screening 1981 Hepatitis B (1 of 3 - 3-dose series) 1981 Lipid Panel 1981 COVID-19 Vaccine (#1) 1981 Depression Screening, Annual for Pts 12 and Over 1993 DTaP,Tdap,and Td Vaccines (1 - Tdap) 2000 Mammogram 12/13/2022 12/13/2021 Influenza Vaccine (FLU shot) (#1) 2022 Pap Smear 10/28/2027 10/27/2022, 12/10/2021 Hepatitis C Screening Completed 10/27/2022 , 10/27/2022, 10/27/2022 GARDASIL-HPV IMMUNIZATION SERIES Aged Out No [...] filedocumented as of this encounter Care Teams Wanigan Clerk Relationship Specialty Start Date End Date Timur Frias II, DO [address] [place] [address] PCP - General Family Medicine 12/22/13 documented as of this encounter
--- OUTSIDE RECORDS SUMMARY | 2023-04-28 20:07 | External Medical Summary | Summary of Care ---
Author Name Unknown Organization [facility] Address [address] [facility] [place] [address] Phone [phone] Care Team Providers Care Health Analytics Consultant Name Role Phone Rodriguez QIU DO, Harold Winton Primary Care Provi deborah Encounter Details Date Type Department Care Team Description 11/06/2022 Telephone Gynecology/Obstetrics [facility] [address] [facility] [place] [address] Holly Rose, JOSTIN [address] [facility] [place] [address] Allergies No known active allergiesdocumented as of this encounter (statuses as of 11/12/2022) Medications Medication Sig Dispensed Refills Start Date [...] as of this encounter (statuses as of 11/12/2022) Active Problems Problem Noted Date Dysplasia of cervix, low grade (ROXANNE 1) 0 01/07/2022 Overview: Repeat pap 2022 documented as of this encounter (statuses as of 11/12/2022) Social History Tobacco Use Types Packs/Day Years [...] Telephone Encounter - Sarita Morgan RN - 11/12/2022 2:18 PM EDT Patient called and made aware of all results below. Patient agreeable to colpo/EMB. scheduled for next week. Advised to take tylenol and aware that she will need give urine for test prior. Patient verbalized understanding and will call back with any other questions. * Telephone Encounter - Sarita Morgan RN [...] Encounters Date Type Specialty Care Team Description 11/19/2022 Office Visit Gynecology Obstetrics Lupe Villa CRNP [address] [place] [address] 12/16/2022 Imaging Radiology 12/18/2022 Office Visit Internal Medicine Olivia Whalen MD [address] [place] [address], [place] [address] 02/16/2023 Office Visit Gynecology Obstetrics Carey Sainz PA-C [address] [place] [address] 11/02/2023 Office Visit Gynecology Obstetrics Carey Sainz PA-C [address] [place] [address] Health Maintenance Due Date Last Done Comments Diabetes Screening 1981 Hepatitis B (1 of 3 - 3-dose series) 1981 Lipid Panel 1981 COVID-19 Vaccine (#1) 1981 Depression Screening, Annual for Pts 12 and Over 1993 DTaP,Tdap,and Td Vaccines (1 - Tdap) 2000 HPV/Co-Test 06/27/2011 Mammogram 12/13/2022 12/13/2021 Influenza Vaccine (FLU shot) (#1) 2022 Cervical Cancer Screening 10/27/2025 Pap Smear 10/27/2025 10/27/2022, 12/10/2021 Hepatitis C Screening Completed 10/27/2022 [...] filedocumented as of this encounter Care Teams Health Analytics Consultant Relationship Specialty Start Date End Date Timur Frias II, [address] [place] [address] PCP - General Family Medicine 12/22/13 documented as of this encounter
--- OUTSIDE RECORDS SUMMARY | 2023-04-28 20:07 | External Medical Summary | Summary of Care ---
Author Name Unknown Organization [facility] Address [address] [facility] [address] Phone [phone] Care Team Providers Care Technical Operations Vice President Name Role Phone Rodriguez QIU DO, Harold Winton Primary Care Provi deborah Reason for Visit * Reason Comments Colposcopy Colpo/EMB Encounter Details Date Type Department Care Team (Late st Contact Info) Description 03/25/2023 9:00 AM EST Office Visit Gynecology/Obstetric s Smartyamilka Aragon [address] [place] [address] BackLupe olson CRNP [address] [place] [address] Atypical glandular cells on cervical Pap smear* Allergies No known active allergiesdocumented as of this encounter (statuses as of 03/25/2023) Medications Medication Sig Dispensed Refills Start Date End Date Status Melatonin ER 1 MG Oral Tablet Extended ReleaseIndication s:Insomnia, unspecified type daily1 tab at bedtime daily, if not improved may increase upto 5 mg daily 1 Tablet 0 10/15/2022 Active metroNIDAZOLE 500 MG Oral Tablet (Flagyl)Indicatio ns:BV (bacterial vaginosis) Take 1 Tablet by mouth in the morning and 1 Tablet before bedtime. X 7 days until gone.. 14 Tablet 0 10/29/2022 Discontinued Doxycycline Hyclate 100 MG Oral Capsule Take 1 Capsule by mouth in the morning and 1 Capsule before bedtime. Before or after meals for seven days.. 14 Capsule 0 10/29/2022 3 Discontinued Hospital, Clinic, or Other Facility Administered Medication Ordered Dose Route Frequency Start Date End Date Status Ibuprofen (Motrin) tab 800 mgIndications:Atypical glandular cells on cervical Pap smear 800 mg OR ONCE 03/25/2023 03/25/2023 Active documented as of this encounter (statuses as of 03/25/2023) Active Problems Problem Noted Date Diagnosed Date Dysplasia of cervix, low grade (ROXANNE 1) 2 Overview: Repeat pap 2022 documented as of this encounter (statuses as of 03/25/2023) Social History Tobacco Use Types Packs/Day Years [...] on file documented as of this encounter Last Filed Vital Signs Vital Sign Reading Time Taken Comments Blood Pressure 150/98 03/25/2023 8:51 AM EST Pulse - - Temperature - - Respiratory Rate - - Oxygen Saturation - - Inhaled Oxygen Concentration - - Weight 67.1 kg (148 lb) 03/25/2023 8:51 AM EST Height 152.4 cm (5') 03/25/2023 8:51 AM EST Body Mass Index 28.9 03/25/2023 8:51 AM EST documented in this encounter Patient Instructions * Patient Instructions* Lupe Villa CRNP - 03/25/2023 8:57 AM EST Post colposcopy instructions: You can expect a coffee ground discharge or light bleeding for about 1-2 weeks post procedure. Do not take Aspirin or aspirin-containing products ( it may increase the amount of vaginal bleedingand affect the ability to of the blood to clot). Take Tylenol or Advil for any discomfort Avoid heavy lifting, strenuous exercise, jogging, anything in the vagina ( intercourse, douching, tampons) for 7 days It is very important to keep all follow up appointments Call your health care provider if the following occurs: - Bright red vaginal bleeding- saturating a pad/hr - Foul smelling vaginal discharge - Pain - Fever of 100 degrees or greater documented in this encounter Progress Notes * Lupe Villa CRNP - 03/25/2023 8:57 AM EST Colposcopy Procedure Quirino Espinoza presents for colposcopy and endometrial biopsy for evaluation of recent pap showing: AGC, neg HPV Previous pap smears: 2021 LSIL +HPV, ROXANNE 1 on subsequent colposcopic guided biopsy She is s/p BTL BP 150/98 | Ht 1.524 m (5') | Wt 67.1 kg (148 lb) | LMP 03/17/2023 (Approximate) | BMI 28.90 kg/m| BSA 1.69 m Reviewed in detail procedure, risks, benefits and indications. Urine Test: neg A ''time out'' was initiated by PRASHANTH Becerra. The patient was identified by name and date of . The correct procedure, and correct site identified. Correct positioning (as applicable).There is availability of necessary equipment. Pt states she is not allergic to latex. PE: bimanual exam: Not performed. external genitalia: No lesions. vagina: No lesions. cervix: Lesion #1 Location: 3 o'clock: Appearance: [place]; Completely visualized: yes; Biopsied: yes Lesion #2 Location: 6 o'clock: Appearance: [place]; Completely visualized: yes; Biopsied: yes Lesion #3 Location: 11 o'clock: Appearance: [place]et[place]hite and Atypical Vessels; Completely visualized:yes; Biopsied: yes Transformation Zone: Seen in entirety Satisfactory Colposcopy: yes Additional Biopsies: endometrial ECC: yes Cervix cleaned with betadine x3. Single tooth tenaculum placed on anterior lip of the cervix. Pipelle inserted through os and uterus sounded to 9 cm. Moderate amount of tissue obtained. Hemostasis achieved, patient tolerated procedure well. Impression 1. Atypical glandular cells on cervical Pap smear - URINE SCREEN, POINT OF CARE (ENTER/EDIT) - SURGICAL PATHOLOGY - Ibuprofen (Motrin) tab 800 mg F/U results on any testing done. Reviewed instructions including no sex, tampons, or douching for at least 7 days. Call with severe pain, bleeding that saturates a pad in <1 hr, unexplained fever/chills. PRASHANTH Becerra documented in this encounter Nursing Notes * Serina Ríos LPN - 03/25/2023 8:55 AM EST Chief Complaint Patient presents with Colposcopy Colpo/EMB Patient's last menstrual period was 03/17/2023 (approximate). BTL documented in this encounter Plan of Treatment Upcoming Encounters Date Type Department Care Team (Late st Contact Info) Description 04/29/2023 10:30 AM EST Imaging Radiology [facility] [address] [facility] [place] [address] 11/02/2023 10:00 AM EDT Office Visit Gynecology/Obstetrics [facility] [address] [facility] [place] [address] Carey Sainz PA-C [address] [facility] [place] [address] Scheduled Orders Name Type Priority Associated Diagnoses Orde r Schedule SURGICAL PATHOLOGY Pathology Routine Atypical glandular cells on cervical Pap smear Ordered: 03/25/2023 Health Maintenance Due Date Last Done Comments [...] Not on filedocumented as of this encounter Procedures Procedure Name Priority Date/Time Associated Diagnosis Comments URINE SCREEN, POINT OF CARE (ENTER/EDIT) Routine 03/25/2023 Atypical glandular cells on cervical Pap smear documented in this encounter Results * URINE SCREEN, POINT OF CARE (ENTER/EDIT) (03/25/2023) hCG Beta, Urine Negative Negative Procedural Control Valid? Yes Lot Number [id number] Expiration Date Urine 03/25/2023 [facility] POINT O F CARE TEST ENTER/EDIT ORDERABLES documented in this encounter Visit Diagnoses Diagnosis Atypical glandular cells on cervical Pap smear- Primary documented in this encounter Care Teams Technical Operations Vice President Relationship Specialty Start Date End Date Timur Frias II, DO [address] [place] [address] PCP - General Family Medicine 12/22/13 documented as of this encounter"
--- OUTSIDE RECORDS SUMMARY | 2023-04-28 20:07 | External Medical Summary | Summary of Care ---
Author Name Unknown Organization [facility] Address [address] [place] [facility] [place] [place] [address] Phone [phone] Care Team Providers Care Sewer Head Name Role Phone Rodriguez QIU DO, Harold Winton Primary Care Provi deborah Encounter Details Date Type Department Care Team Description 10/30/2022 Telephone Gynecology/Obstetrics [facility] [address] [place] [address] Holly Rose [facility] [address] [place] [address] Allergies No known active allergiesdocumented as of this encounter (statuses as of 11/13/2022) Medications Medication Sig Dispensed Refills Start Date [...] as of this encounter (statuses as of 11/13/2022) Active Problems Problem Noted Date Dysplasia of cervix, low grade (ROXANNE 1) 0 01/07/2022 Overview: Repeat pap 2022 documented as of this encounter (statuses as of 11/13/2022) Social History Tobacco Use Types Packs/Day Years [...] at Date Recorded Female 12/09/2021 7:14 AM EDT Job Start Date Occupation Industry Not on file Not on file Not on file documented as of this encounter Miscellaneous Notes * Telephone Encounter - WENDY Lutz - 10/30/2022 12:32 PM EDT LMOM * Telephone Encounter - Serina Ríos LPN - 10/30/2022 10:27 AM EDT See below message. Please assist with scheduling repeat g/c testing in 3 months per Holly Rose. * Telephone Encounter - Holly Rose CNM - 10/30/2022 10:21 AM EDT Called patient back. Re-testing for chlamydia should be done with a swab. I would also like to follow up with her regarding symptoms, she she'll need an appointment in 3 months. I recommended her go to urgent care for treatment. Patient agreeable. Holly Rose CNM 10/30/22 10:25 AM * Telephone Encounter - Serina Ríos LPN - 10/30/2022 10:05 AM EDT Pt calling in requesting to speak directly to Holly with additional questions. Holly are you able to reach back out to pt? * Telephone Encounter - Serina Ríos LPN - 10/30/2022 9:59 AM EDT Holly is it ok for pt to do at the lab via urine? * Telephone Encounter - Holly Rose CNM - 10/30/2022 9:42 AM EDT Called patient to review lab results. Reviewed that she tested positive for chlamydia and bacterialvaginosis. Educated patient that chlamydia is an STI and bacterial vaginosis is not necessarily transmitted sexually. Patient states she has had no new sex partners in the last year. Reviewed medication instructions. Rx for doxycycline 100mg PO BID x 7 days and metronidazole 500mg PO BID x 7 days. Emphasized the importance of having her get tested and treated. Patient agreeable to notifying her and having him go to his PCP for treatment. Recommended abstinence and avoiding alcohol until she finishes treatment. Also offered counseling referral after having a discussion about men luisa health. Patient declined counseling referral and prefers to see how she feels after receiving treatment for chlamydia and BV. Reviewed that her TSH and CBC were normal and she tested negative forHIV, hepatitis B, hepatitis C, and syphilis. Pap results pending. Patient will go for pelvic ultrasound today. Patient verbalized understanding and agreeable to the above plan. Please assist with scheduling follow up appointment in 3 months for re-testing for chlamydia. Thanks! Holly Rose CNM documented in this encounter Plan of Treatment Upcoming Encounters Date Type Specialty Care Team Description 11/19/2022 Office Visit Gynecology Obstetrics Backer, PRASHANTH Meade [address] [place] [address] 12/16/2022 Imaging Radiology 12/18/2022 Office Visit Internal Medicine Olivia Whalen MD [address] [place] [address] 02/16/2023 Office Visit Gynecology Obstetrics Carey Sainz PA-C [address] [place] [address] 11/02/2023 Office Visit Gynecology Obstetrics Carey Sainz PA-C [address] [place] [address] Health Maintenance Due Date Last Done Comments Diabetes Screening 1981 Hepatitis B (1 of 3 - 3-dose series) 1981 Lipid Panel 1981 COVID-19 Vaccine (#1) 1981 Depression Screening, Annual for Pts 12 and Over 1993 DTaP,Tdap,and Td Vaccines (1 - Tdap) 2000 Mammogram 12/13/2022 12/13/2021 Influenza Vaccine (FLU shot) (#1) 2022 Pap Smear 10/27/2025 10/27/2022, 12/10/2021 Cervical Cancer Screening 10/28/2027 HPV/Co-Test 10/28/2027 10/27/2022 Hepatitis C Screening Completed 10/27/2022 , 10/27/2022, [...] filedocumented as of this encounter Care Teams Sewer Head Relationship Specialty Start Date End Date Timur Frias II, [address] [place] [address] PCP - General Family Medicine 12/22/13 documented as of this encounter
--- OUTSIDE RECORDS SUMMARY | 2023-04-28 20:07 | External Medical Summary | Summary of Care ---
Author Name Unknown Organization [facility] Address [address] [facility] [place] [address] Phone [phone] Care Team Providers Care Planting Supervisor Name Role Phone Rodriguez QIU DO, Harold Winton Primary Care Provi deborah Encounter Details Date Type Department Care Team Description 10/29/2022 Telephone Gynecology/Obstetrics [facility] 132 [facility] [place] [address] Holly Rose, JOSTIN [address] [facility] [place] [address] Allergies No known active allergiesdocumented as of this encounter (statuses as of 01/28/2023) Medications Medication Sig Dispensed Refills Start Date [...] as of this encounter (statuses as of 01/28/2023) Active Problems Problem Noted Date Dysplasia of cervix, low grade (ROXANNE 1) 0 01/07/2022 Overview: Repeat pap 2022 documented as of this encounter (statuses as of 01/28/2023) Social History Tobacco Use Types Packs/Day Years [...] Telephone Encounter - Esther Ma RN - 10/29/2022 2:12 PM EDT Pt's voicemail states that pt will be out of town "for a period of time". Message advises to send an email. Will send a message via [employer] to call office to discuss her test results. * Telephone Encounter - Sarita Morgan RN - 10/29/2022 11:50 AM EDT ----- Message from Holly Rose CNM sent at 10/29/2022 11:25 AM EDT ----- Please let patient know she tested positive for bacterial vaginosis. Rx for PO metronidazole 500mg BID x 7 days. She also tested positive for chlamydia. Rx for Doxycycline 100mg PO BID x days. She should take these medications with food. She should avoid alcohol and intercourse while taking these medications. She tested negative for gonorrhea, yeast, and trichomonas as well as HIV, hepatitis B and C, and syphilis. Her thyroid stimulating hormone was normal. Her CBC showed no anemia. Her pap results are still pending. She will need to come back in 3 months for re-testing for chlamydia. Please assist with scheduling. She also needs to make sure her partner is treated for chlamydia. Thanks! Holly Rose CNM documented in this encounter Plan of Treatment Upcoming Encounters Date Type Specialty Care Team Description 02/16/2023 Office Visit Gynecology Obstetrics Carey Sainz PA-C [address] [place] [address] 04/29/2023 Imaging Radiology 11/02/2023 Office Visit Gynecology Obstetrics Carey Sainz PA-C [address] [place] [address] Health Maintenance Due Date Last Done Comments [...] filedocumented as of this encounter Care Teams Planting Supervisor Relationship Specialty Start Date End Date Timur Frias II, [address] [place] [address] PCP - General Family Medicine 9/4/14 documented as of this encounter
--- OUTSIDE RECORDS SUMMARY | 2023-04-28 20:07 | External Medical Summary | Summary of Care ---
Author Name Unknown Organization [facility] Address [address] [facility] [place] [address] Phone [phone] Care Team Providers Care Cupola Repairer Name Role Phone Rodriguez QIU DO, Harold Winton Primary Care Provi deborah Encounter Details Date Type Department Care Team Description 11/06/2022 Telephone Gynecology/Obstetrics [facility] [address] [facility] [place] [address] Holly Rose, JOSTIN [address] [facility] [place] [address] Allergies No known active allergiesdocumented as of this encounter (statuses as of 11/06/2022) Medications Medication Sig Dispensed Refills Start Date [...] as of this encounter (statuses as of 11/06/2022) Active Problems Problem Noted Date Dysplasia of cervix, low grade (ROXANNE 1) 0 01/07/2022 Overview: Repeat pap 2022 documented as of this encounter (statuses as of 11/06/2022) Social History Tobacco Use Types Packs/Day Years [...] Internal Medicine Olivia Whalen MD [address] [place] [address] 11/02/2023 Office Visit Gynecology Obstetrics Carey Sainz PA-C [address] [place] [address] Health Maintenance Due Date Last Done Comments [...] as of this encounter Care Teams Cupola Repairer Relationship Specialty Start Date End Date Timru Frias II, DO [address] [place] [address] PCP - General Family Medicine 12/22/13 documented as of this encounter
--- OUTSIDE RECORDS SUMMARY | 2023-04-28 20:07 | External Medical Summary ---
Author Name Unknown Address Unknown Organization K01:[facility] [place] [facility] [place] [address] Laboratory Report Ordering Provider Test Date Status TAIT CHAPIN 02/16/2023 09:44:47 Final Observation Date Value Abnormality Reference (Units ) Status Chlamydia trachomatis rRNA [Presence] in Specimen by MARY JO with probe detection 02/16/2023 09:44:47 Negative Negative Final No Chlamydia trachomatis det ected by guest services attendant-mediated nucleic acid amplification. Neisseria gonorrhoeae rRNA [ Presence] in Specimen by MARY JO with probe detection 02/16/2023 09:44:47 Negative Negative Final No Neisseria gonorrhoeae det ected by guest services attendant-mediated nucleic acid amplification. Performing Location [facility] [place] [address] [place] [address]
--- OUTSIDE RECORDS SUMMARY | 2023-04-28 20:07 | External Medical Summary | Summary of Care ---
Author Name Unknown Organization [facility] Address [address] [facility] [place] [address] Phone [phone] Care Team Providers Care Chief Accounting Officer Name Role Phone Rodriguez QIU DO, Harold Winton Primary Care Provi deborah Encounter Details Date Type Department Care Team Description 11/06/2022 Telephone Gynecology/Obstetrics [facility] [address] [facility] [place] [address] [place], [place] [address] [facility] [place] [address] Allergies No known [...] Visit Internal Medicine Olivia Whalen MD [address] [facility] [place] [address] 11/02/2023 Office Visit Gynecology Obstetrics Carey Sainz PA-C [address] [place] [address] Health Maintenance Due Date Last Done Comments [...] filedocumented as of this encounter Care Teams Chief Accounting Officer Relationship Specialty Start Date End Date Timur Frias II, [address] [place] [address] PCP - General Family Medicine 12/22/13 documented as of this encounter
--- OUTSIDE RECORDS SUMMARY | 2023-04-28 20:07 | External Medical Summary ---
Author Name Unknown Address Unknown Organization K01:[facility] - [address] [place] [address] Laboratory Report Ordering Provider Test Date Status TAVARESTATI 02/16/2023 09:44:47 Final Observation Date Value Abnormality Reference (Units ) Status Trichomonas vaginalis rRNA [Presence] in Specimen by MARY JO with probe detection 02/16/2023 09:44:47 Negative Negative Final No Trichomonas vaginalis det ected by database report writer mediated nucleic acid amplification. Performing Location [facility] - [address] [place] [address]
--- OUTSIDE RECORDS SUMMARY | 2023-04-28 20:07 | External Medical Summary | Summary of Care ---
Author Name Unknown Organization [facility] Address [address] [address] Phone [phone] Care Team Providers Care Foreign Diplomat Name Role Phone Rodriguez QIU DO, Harold Winton Primary Care Provi deborah Reason for Visit * Reason Comments Colposcopy Colpo/EMB Encounter Details Date Type Department Care Team (Late st Contact Info) Description 03/25/2023 9:00 AM EST Office Visit Gynecology/Obstetric s Smartyamilka Aragon [address] [place] [address] BackLupe olson CRNP [address] [place] [address] Atypical glandular cells on cervical Pap smear* [...] Description 04/29/2023 10:30 AM EST Imaging Radiology [facility] [facility] [address] [facility] [place] [address] 11/02/2023 10:00 AM EDT Office Visit Gynecology/Ob[facility] [address] [facility] [place] [address] Carey Sainz PA-C [address] [facility] [place] [address] Pending Results Name Type Priority Associated Diagnoses Date /Time SURGICAL PATHOLOGY Pathology Routine Atypical glandular cells on cervical Pap smear 03/25/2023 9:39 AM EST Health Maintenance Due Date Last Done Comments [...] Valid? Yes Lot Number [id number] Expiration Date ,025 Urine 03/25/2023 Lupe Javed Backer PR[facility] CARE TEST ENTER/EDIT ORDERABLES documented in this encounter Visit Diagnoses Diagnosis Atypical glandular cells on cervical Pap smear- Primary documented in this encounter Care Teams Foreign Diplomat Relationship Specialty Start Date End Date Timur Frias II, DO [address] [place] [address] PCP - General Family Medicine 12/22/13 documented as of this encounter"
--- OUTSIDE RECORDS SUMMARY | 2023-04-28 20:07 | External Medical Summary | Summary of Care ---
Author Name Unknown Organization [facility] Address [address] [facility] [place] [address] Phone [phone] Care Team Providers Care Interior Design Teacher Name Role Phone Rodriguez QIU DO, Harold Winton Primary Care Provi deborah Reason for Visit * Reason Comments Mate First Return Encounter Details Date Type Department Care Team (Late st Contact Info) Description 02/16/2023 9:30 AM EDT Office Visit Gynecology/Obstetric s Joanna Aragon [address] [place] [address] Carey Sainz PA-C [address] [place] [address] Chlamydia infection*; Screening examination for venereal disease; Atypical glandular cells on cervical Pap smear Allergies No known active allergiesdocumented as of this encounter (statuses as of 02/16/2023) Medications Medication Sig Dispensed Refills Start Date End Date Status Melatonin ER 1 MG Oral Tablet Extended ReleaseIndications: Insomnia, unspecified type daily1 tab at bedtime daily, if not improved may increase upto 5 mg daily 1 Tablet 0 10/15/2022 Active metroNIDAZOLE 500 MG Oral Tablet (Flagyl)Indications :BV (bacterial vaginosis) Take 1 Tablet by mouth in the morning and 1 Tablet before bedtime. X 7 days until gone.. 14 Tablet 0 10/29/2022 Active Additional Information Patient not taking.Reported on 02/16/2023 Doxycycline Hyclate 100 MG Oral Capsule Take 1 Capsule by mouth in the morning and 1 Capsule before bedtime. Before or after meals for seven days.. 14 Capsule 0 10/29/2022 Active Additional Information Patient not taking.Reported on 02/16/2023 documented as of this encounter (statuses as of 02/16/2023) Active Problems Problem Noted Date Diagnosed Date Dysplasia of cervix, low grade (ROXANNE 1) 2 Overview: Repeat pap 2022 documented as of this encounter (statuses as of 02/16/2023) Social History Tobacco Use Types Packs/Day Years [...] Sign Reading Time Taken Comments Blood Pressure 124/82 02/16/2023 9:26 AM EDT Pulse - - Temperature - - Respiratory Rate - - Oxygen Saturation - - Inhaled Oxygen Concentration - - Weight 68 kg (150 lb) 02/16/2023 9:26 AM EDT Height 152.4 cm (5') 02/16/2023 9:26 AM EDT Body Mass Index 29.29 02/16/2023 9:26 AM EDT documented in this encounter Progress Notes * Carey Sainz PA-C - 02/16/2023 9:39 AM EDT SUBJECTIVE: Quirino Espinoza is a 42 year old female here for CYNDI for Chlamydia. Chief Complaint Patient presents with Mate First Return HPI: 42 year old female here for CYNDI for Chlamydia and STD screening. Found to be + for Chlamydia with annual exam in October 2022, s/p Doxycycline treatment. Pt reports no issues with taking medications. She is sexually active. Her current sexual partner whom she was with at time of positive also was treated appropriately she reports. No current symptoms. Of note, also had atypical glandular cells on pap smear. She was was negative for HPV. Colpo/EMB recommended, pt has not yet followed up. Recommended she have these procedures in follow and pt was agreeable to completing. Medications: Current Outpatient Medications Medication Sig Dispense Refill Melatonin ER 1 MG Oral Tablet Extended Release daily1 tab at bedtime daily, if not improved may increase upto 5 mg daily 1 Tablet 0 metroNIDAZOLE 500 MG Oral Tablet (Flagyl) Take 1 Tablet by mouth in the morning and 1 Tablet beforebedtime. X 7 days until gone.. (Patient not taking: Reported on 02/16/2023) 14 Tablet 0 Doxycycline Hyclate 100 MG Oral Capsule Take 1 Capsule by mouth in the morning and 1 Capsule beforebedtime. Before or after meals for seven days.. (Patient not taking: Reported on 02/16/2023) 14 Capsule 0 No current facility-administered medications for this visit. Allergies: Review of patient's allergies indicates: No Known Allergies Patient Active Problem List Diagnosis Code Dysplasia of cervix, low grade (ROXANNE 1) N87.0 Past Medical History: Diagnosis Date Dysplasia of cervix, low grade (ROXANNE 1) 01/07/2022 Repeat pap 2022 OB History Para Term AB Living 2 2 2 2 SAB IAB Ectopic Multiple Live Births 2 # Outcome Date GA Lbr Randal/2nd Weight Sex Delivery Anes PTL Lv 2 Term 1 Term Past Surgical History: Procedure Laterality Date COLPOSCOPY OF CERVIX W/BIOPSY 12/31/2021 LIGATE/CUT OVIDUCT(S) Bilateral Family History Problem Relation Age of Onset Diabetes Father Review of Systems: CONSTITUTIONAL ROS: No change in weight, No fevers, sweats, or chills CARDIOVASCULAR ROS: No chest pain, No shortness of breath GASTROINTESTINAL ROS: No abdominal pain, No change in bowel habits, No nausea, vomiting, diarrhea, or constipation. GENITO-URINARY FEMALE ROS: See HPI. No dysuria, no irregular menstruation, No urgency and no vaginal discharge MSK/EXTREMITIES ROS: No pain, redness or swelling on the joints OBJECTIVE: BP 124/82 | Ht 1.524 m (5') | Wt 68 kg (150 lb) | LMP 01/19/2023 (Approximate) | BMI 29.29 kg/m |BSA 1.7 m General: awake, alert, and oriented x 3, normal affect, no acute distress External Genitalia/Vulva: anatomy is normal, no significant redness of labia, no discharge on vulvar tissues, ulcers are absent, no condylomatous lesions Vagina: vaginal tissues are not inflamed, normal color and texture, no significant discharge present Cervix: without lesions, no cervicitis, no discharge from os, no cervical motion tenderness. Mechanic/Welder Documentation Provider requested instructor military science. Name of instructor military science: EVANGELISTA Perez ASSESSMENT/PLAN: Chlamydia infection (Primary) - CHLAMYDIA TRACHOMATIS AND NEISSERIA GONORRHOEAE, AMPLIFIED PROBE - TRICHOMONAS VAGINALIS, AMPLIFIED PROBE Screening examination for venereal disease - CHLAMYDIA TRACHOMATIS AND NEISSERIA GONORRHOEAE, AMPLIFIED PROBE - TRICHOMONAS VAGINALIS, AMPLIFIED PROBE Atypical glandular cells on cervical Pap smear Colpo/EMB recommended, pt has yet to complete. Recommend she complete these in follow up, we discussed increased concern for dysplasia/malignancy and rationale for recommendation. Pt scheduled for these procedures prior to leaving appointment today. Follow Up: Return if symptoms worsen or fail to improve, for Clinic Visit. | For: Clinic Visit | Check-out note: Pt needs AVS summary printed Carey Sainz PA-C documented in this encounter Nursing Notes * Ana Coreas LPN - 02/16/2023 9:29 AM EDT Chlamydia CYNDI. documented in this encounter Plan of Treatment Upcoming Encounters Date Type Department Care Team (Late st Contact Info) Description 03/25/2023 9:00 AM EST Office Visit Gynecology/Obstetrics [facility] [address] [facility] [place] [address] Lupe Villa CRNP [address] [place] [address] 04/29/2023 10:30 AM EST Imaging Radiology [facility] [address]st [facility] [place] [address] [place] [address] 11/02/2023 10:00 AM EDT Office Visit Gynecology/Obstetrics [facility] [address] [place] [address] Carey Sainz PA-C [address] [place] [address] Pending Results Name Type Priority Associated Diagnoses Date /Time CHLAMYDIA TRACHOMATIS AND NEISSERIA GONORRHOEAE, AMPLIFIED PROBE Lab Routine Chlamydia infection Screening examination for venereal disease 02/16/2023 9:44 AM EDT TRICHOMONAS VAGINALIS, AMPLIFIED PROBE Lab Routine Chlamydia infection Screening examination for venereal disease 02/16/2023 9:44 AM EDT Health Maintenance Due Date Last Done Comments [...] Not on filedocumented as of this encounter Visit Diagnoses Diagnosis Chlamydia infection- Primary Unspecified chlamydial infection, in conditions classified elsewhere and of unspecified site Screening examination for venereal disease Atypical glandular cells on cervical Pap smear documented in this encounter Care Teams Interior Design Teacher Relationship Specialty Start Date End Date Timur Frias II, DO [address] [place] [address] PCP - General Family Medicine 12/22/13 documented as of this encounter"
--- OUTSIDE RECORDS SUMMARY | 2023-04-28 20:07 | External Medical Summary | Summary of Care ---
Author Name Unknown Organization [facility] Address [address] [facility] [place] [address] Phone [phone] Care Team Providers Care Teletypist Name Role Phone Rodriguez QIU DO, Harold Winton Primary Care Provi deborah Encounter Details Date Type Department Care Team Description 11/06/2022 Telephone Gynecology/Obstetrics [facility] 132 [facility] [place] [address] [place], [place] [address] [facility] [place] [address] Allergies No known [...] Visit Internal Medicine Olivia Whalen MD [address] [facility] [place] [address] 11/02/2023 Office Visit Gynecology Obstetrics Carey Sainz PA-C [address] [place] [address] Health Maintenance Due Date Last Done Comments [...] filedocumented as of this encounter Care Teams Teletypist Relationship Specialty Start Date End Date Timur Frias II, [address] [place] [address] PCP - General Family Medicine 12/22/13 documented as of this encounter
--- NOTE | 2023-04-28 20:59 | History & Physical Report ---
Date of Service April 28, 2023 Assessment & Plan (1) Hypertensive urgency: Plan: 42-year-old female with past med history significant for dysplasia of cervix high-grade who was at [employer] today when she was found to high blood pressure and was sent to PCPs office and at PCPs office she was given losartan and hydrochlorothiazide but still blood pressure pressure was very high so she was sent to the ER. In the ER blood pressure on presentation was 217/139. Received couple of doses of IV labetalol and 1 dose of IV hydralazine. Resting comfortably. Patient states she had chest pain for 20 minutes yesterday. Yesterday all day she had headache and dizziness. Currently she has mild headache. Currently no chest pain or shortness of breath. Denies any blurred visions or double visions. No nausea. No cough. No fevers. No runny nose or sore throat. No abdominal pain. Normal bowel and bladder movements. Otherwise she is active. States her mother and grandmother had blood pressure diagnosed in the 50s. Hypertensive urgency Also some dizziness and headache Had some chest pain yesterday Currently has mild headache Started on losartan/ hydrochlorothiazide(50/12.5mg) by the PCP today Received IV labetalol and IV hydralazine in the ER Will continue with the losartan /hydrochlorothiazide IV labetalol as needed Will follow echo Close monitoring telemetry floor Cardiac consult in a.m. for further recommendations Chest pain Currently symptomatic Initial troponin and EKG okay Will follow serial enzymes and echo DVT prophylaxis SCDs for now Disposition Telemetry floor Full code History of Present Illness Chief Complaint: Hypertensive urgency Primary Care Provider: PRASHANTH Loyola 42-year-old female with past med history significant for dysplasia of cervix high-grade who was at [employer] today when she was found to high blood pressure and was sent to PCPs office and at PCPs office she was given losartan and hydrochlorothiazide but still blood pressure pressure was very high so she was sent to the ER. In the ER blood pressure on presentation was 217/139. Received couple of doses of IV labetalol and 1 dose of IV hydralazine. Resting comfortably. Patient states she had chest pain for 20 minutes yesterday. Yesterday all day she had headache and dizziness. Currently she has mild headache. Currently no chest pain or shortness of breath. Denies any blurred visions or double visions. No nausea. No cough. No fevers. No runny nose or sore throat. No abdominal pain. Normal bowel and bladder movements. Otherwise she is active. States her mother and grandmother had blood pressure diagnosed in the 50s. Past medical history. As mentioned above Past surgical history. Colposcopy of cervix with biopsy. Ligation of oviducts. Social history. . No smoking. Alcohol rare. No drug use. Family history. Father has diabetes. Allergies Allergy/AdvReac Type Severity Reaction Status Date / Time pineapple Allergy Intermediate RASH Verified 09/01/15 13:26 Home Medications Medication Instructions Recorded Confirmed Type losartan 50 mg-hydrochlorothiazide 1 tab PO DAILY 04/28/23 04/28/23 History 12.5 mg tablet Past Med/Surg History Medical History Pyelonephritis Asthma Social History Smoking Status: Never smoker Second Hand Exposure: No; Do You Dip or Chew Tobacco: No; Tobacco Cessation Education Requested by Patient: No Hx Alcohol Use: Yes Alcohol type: wine Hx Substance Use: No Preferred Language: French Communication Ability: Effective Deputy Director Of Finance Required: No Beliefs That Will Affect Care: None Current Living Situation: Spouse and Family Current Living Situation Comment: Lives w/ and family Other Information That Helps Us Care for You: No Feels Safe at Home: Yes Safety Concerns: Feels Safe At This Time Review of Systems Review of Systems: All systems reviewed & are unremarkable except as noted in HPI & below Physical Exam Physical Exam: General- Not in distress Head- atraumatic Eyes- PERRL. ENT- oropharynx clear Neck- supple, no JVD. Lungs- clear to auscultation no wheezing or crckles. Heart- regular rhythm; no murmur, no gallop. Abdomen- normal bowel sounds, soft, nontender, no distension. Extremities- no pretibial edema, no erythema seen. Neuro- alert, oriented x 3; PERRL, no facial palsy; no dysarthria; moves extremities. Skin- warm & dry Results & Data Results & Data Vital Signs (Past 12 Hours) Vital Signs Temp Pulse Resp BP Pulse Ox O2 Del Method 04/28/23 20:33 89 23 149/104 H 99 04/28/23 20:15 162/105 H 04/28/23 20:15 93 H 12 99 04/28/23 20:00 92 H 15 99 04/28/23 20:00 157/104 H 04/28/23 19:45 87 15 157/100 H 98 04/28/23 19:15 85 21 191/119 H 97 04/28/23 19:00 84 21 203/133 H 100 04/28/23 18:15 191/121 H 04/28/23 18:15 78 16 99 04/28/23 18:00 184/122 H 04/28/23 18:00 75 13 100 04/28/23 17:45 174/120 H 04/28/23 17:45 79 14 99 04/28/23 17:30 75 12 100 04/28/23 17:30 162/116 H 04/28/23 17:19 73 174/120 H 04/28/23 17:15 175/113 H 04/28/23 17:15 92 H 24 98 04/28/23 17:14 98 Room Air 04/28/23 17:07 76 17 97 04/28/23 17:07 162/108 H 04/28/23 17:06 71 04/28/23 17:04 72 194/123 H 04/28/23 17:03 72 14 98 04/28/23 15:57 36.9 C 89 18 217/139 H 98 Room Air Diagnostic Findings Laboratory Results WBC 11.13 K/ul (4.8-10.8) H 04/28/23 16:07 RBC 4.51 M/uL (4.20-5.40) 04/28/23 16:07 Hgb 12.1 g/dl (12.0-16.0) 04/28/23 16:07 Hct 37.0 % (37.0-47.0) 04/28/23 16:07 MCV 82.0 fL (80.0-100.0) 04/28/23 16:07 MCH 26.8 pg (25.0-34.0) 04/28/23 16:07 MCHC 32.7 g/dL (32.0-36.0) 04/28/23 16:07 RDW Std Deviation 40.8 fL (36.4-46.3) 04/28/23 16:07 RDW Coeff of Desire 13.7 % (11.5-14.5) 04/28/23 16:07 Plt Count 423 K/uL (130-400) H 04/28/23 16:07 MPV 9.6 fL (9.4-12.4) 04/28/23 16:07 Immature Gran % (Auto) 0.2 % 04/28/23 16:07 Neut % (Auto) 63.4 % 04/28/23 16:07 Lymph % (Auto) 27.6 % 04/28/23 16:07 [place]enden % (Auto) 5.8 % 04/28/23 16:07 Eos % (Auto) 1.9 % 04/28/23 16:07 Baso % (Auto) 1.1 % 04/28/23 16:07 Neut # (Auto) 7.07 K/uL (1.40-6.50) H 04/28/23 16:07 Lymph # (Auto) 3.07 K/uL (1.20-3.40) 04/28/23 16:07 [place]ittenden # (Auto) 0.64 K/uL (0.11-0.59) H 04/28/23 16:07 Eos # (Auto) 0.21 K/uL (0.00-0.50) 04/28/23 16:07 Baso # (Auto) 0.12 K/uL (0.00-0.20) 04/28/23 16:07 Immature Gran # (Auto) 0.02 K/uL (0.01-0.20) 04/28/23 16:07 PT 10.1 Seconds (9.0-12.0) 04/28/23 16:07 INR 0.9 (0.9-1.1) 04/28/23 16:07 APTT 26 Seconds (21-31) 04/28/23 16:07 PTT Ratio 0.9 04/28/23 16:07 Sodium 134 mmol/L (136-145) L 04/28/23 16:07 Potassium 3.7 mmol/L (3.5-5.1) 04/28/23 16:07 Chloride 101 mmol/L (98-107) 04/28/23 16:07 Carbon Dioxide 25 mmol/L (21-32) 04/28/23 16:07 Anion Gap 8 (3-11) 04/28/23 16:07 BUN 20 mg/dl (6-23) 04/28/23 16:07 Creatinine 0.73 mg/dl (0.6-1.2) 04/28/23 16:07 Est Cr Clr Drug Dosing 87.5 ml/min 04/28/23 16:07 Est GFR ( Amer) 118.6 ml/min 04/28/23 16:07 Est GFR (Non-Af Amer) 102.3 ml/min 04/28/23 16:07 BUN/Creatinine Ratio 27.4 (10-20) H 04/28/23 16:07 Glucose 102 mg/dl (70-99(Fasting)) H 04/28/23 16:07 Calcium 10.1 mg/dl (8.6-10.3) 04/28/23 16:07 Total Bilirubin 0.2 mg/dl (0.2-1.0) 04/28/23 16:07 AST 16 U/L (13-39) 04/28/23 16:07 ALT 10 U/L (7-52) 04/28/23 16:07 Alkaline Phosphatase 101 U/L (34-104) 04/28/23 16:07 Troponin I High Sens 3.8 pg/ml (0-14) 04/28/23 16:07 Total Protein 8.8 gm/dl (6.0-8.3) H 04/28/23 16:07 Albumin 4.7 gm/dl (3.4-5.0) 04/28/23 16:07 Globulin 4.1 gm/dl (2.5-4.0) H 04/28/23 16:07 Albumin/Globulin Ratio 1.1 (0.9-2) 04/28/23 16:07 Impressions Chest X-Ray 04/28/23 16:03 XR chest 1V not portable CLINICAL HISTORY: Chest pain, nonspecific TECHNIQUE: Single frontal radiograph of the chest was obtained. Comparison: Comparison is made to chest radiograph 07/26/2016 FINDINGS: No lines and tubes are seen. The cardiomediastinal silhouette is normal. The lungs are clear. No evidence of pleural effusion or pneumothorax. IMPRESSION: No acute chest disease. ACT 112: Negative or not required by law. Electronically signed by: Curtis Parker M.D. 04/28/2023 4:[address] 04/28/23 16:40 CT SCAN OF THE BRAIN WITHOUT IV CONTRAST CLINICAL HISTORY: Headache. Hypertension. COMPARISON STUDY: No priors. TECHNIQUE: Unenhanced axial CT scan of the brain is performed from the vertex to the skull base. A dose lowering technique was utilized adhering to the principles of ALARA. CT DOSE: 547.75 mGy.cm FINDINGS: Brain parenchyma: The brain parenchyma is normal in appearance. There is no hemorrhage, mass effect, or evidence of acute territorial ischemia by CT criteria. Smart-white matter differentiation is preserved. No extra-axial fluid collection is seen. Ventricles, sulci, cisterns: Normal in configuration. Intracranial vasculature: The visualized intracranial vasculature at the skull base is normal in appearance. Calvarium: Unremarkable. Sinuses and mastoids: The visualized paranasal sinuses are clear. The mastoid air cells are well pneumatized. Orbits: The bony orbits are grossly intact. IMPRESSION: No acute intracranial abnormality. ACT 112: Negative or not required by law. Electronically signed by: Tyson Person M.D. 04/28/2023 4:59 PM ECG Additional Comments: ECG. Normal sinus rhythm with rate of 74. No acute ST changes seen. Code Status & VTE Plan VTE Prophylaxis Plan VTE Prophylaxis will be ordered: Yes
--- OUTSIDE RECORDS SUMMARY | 2023-04-28 22:22 | External Medical Summary | Summary of Care ---
Author Name Unknown Organization [facility] Address [address] [facility] [place] [address] Phone [phone] Care Team Providers Care Shuttle Filler Name Role Phone Rodriguez QIU DO, Harold Winton Primary Care Provi deborah Reason for Referral * Precert (Within 10 days (routine)) - Authorized Specialty Diagnoses / Procedures Referred By Grayson dempsey Referred To Contact Cardiac Studies Diagnoses Hypertensive urgency EKG abnormality Procedures ECHO, COMPLETE (2D), TRANS-THORACIC Marilin Milian CRNP [address] [place] [address] Referral ID Status Reason Start Date Expiration Date V isits Requested Visits Authorized [id number] Authorized Precert 04/28/2023 999 999 * Evaluate & Treat - Unlimited Visits (Within 10 days (routine)) - Authorized Specialty Diagnoses / Procedures Referred By Grayson dempsey Referred To Contact Sleep Medicine / Sleep Disorders Diagnoses Snoring Marilin Milian CRNP [address] [place] [address] Referral ID Status Reason Start Date Expiration Date Visits Requested Visits Authorized [id number] Authorized Specialty Services Required 04/28/2023 2 2 Question Answer GS CAD SLEEP MED ADULT REFERRAL Sleep Apnea Testing and Management Does the patient snore and/or gasp at night or has been told they stop breathing at night? Yes Referral Priority Within 10 days (routine) Where should this appointment be scheduled? [facility] Reason for Visit * Reason Comments Acute PT HERE FOR COMPLAIN T OF ELEVATED BLOOD PRESSURE. PT WAS SEEN IN OBGYN AND BLOOD PRESSURE WAS ELEVATED. PT WAS TOLD TO FOLLOW UP WITH PCP'S OFFICE. Encounter Details Date Type Department Care Team (Late st Contact Info) Description 04/28/2023 1:00 PM EST Office Visit [facility] [address] [place] [address] Marilin Milian CRNP [address] [place] [address] HTN, goal below 130/80*; Hypertensive urgency; Snoring; EKG abnormality Allergies No known active allergiesdocumented as of this encounter (statuses as of 04/28/2023) Medications Medication Sig Dispensed Refills Start Date End Date Status Melatonin ER 1 MG Oral Tablet Extended ReleaseIndications :Insomnia, unspecified type daily1 tab at bedtime daily, if not improved may increase upto 5 mg daily 1 Tablet 0 10/15/2022 Active Losartan Potassium-HCTZ 50-12.5 MG Oral Tablet (Hyzaar) Take 1 Tablet by mouth in the morning. 30 Tablet 11 04/28/2023 Active Losartan Potassium-HCTZ 50-12.5 MG Oral Tablet (Hyzaar) Take 1 Tablet by mouth in the morning. 30 Tablet 11 04/28/2023 04/28/2023 Discontinued (Refill) documented as of this encounter (statuses as of 04/28/2023) Active Problems Problem Noted Date Diagnosed Date HTN, goal below 130/80 04/28/2023 Snoring 04/28/2023 Hypertensive urgency 04/28/2023 EKG abnormality 04/28/2023 Dysplasia of cervix, high grade ROXANNE 2 03/31/2023 Dysplasia of cervix, low grade (ROXANNE 1) 2 Overview: Repeat pap 2022 documented as of this encounter (statuses as of 04/28/2023) Social History Tobacco Use Types Packs/Day Years Used Date Smoking Tobacco: Never Smokeless Tobacco: Never Tobacco Cessation:Counseling Given: Not Answered Alcohol Use Standard Drinks/Week Comments Yes 0 [...] Sign Reading Time Taken Comments Blood Pressure 190/120 04/28/2023 3:24 PM EST Pulse 71 04/28/2023 3:24 PM EST Temperature 36.9 C (98.5 F) 04/28/2023 12:[address] Respiratory Rate 16 04/28/2023 3:24 PM EST Oxygen Saturation 98% 04/28/2023 3:24 PM EST Inhaled Oxygen Concentration - - Weight 68.6 kg (151 lb 3.2 oz) 04/28/2023 12:58 PM EST Height 152.4 cm (5') 04/28/2023 12:58 PM EST Body Mass Index 29.53 04/28/2023 12:58 PM EST documented in this encounter Progress Notes * Marilin Milian CRNP - 04/28/2023 1:02 PM EST New Patient Family Medicine Visit CC: Chief Complaint Patient presents with Acute PT HERE FOR COMPLAINT OF ELEVATED BLOOD PRESSURE. PT WAS SEEN IN OBGYN AND BLOOD PRESSURE WAS ELEVATED. PT WAS TOLD TO FOLLOW UP WITH PCP'S OFFICE. History of Present Illness: Quirino Espinoza is a 42 year old female presenting with high blood pressure. Seen at [facility] and noted to have very elevated blood pressure. She is under a lot of stress at work. Denies medications or supplements over the counter. She notes mother and grandmother have high blood pressure. [place] pain or pressure in chest for 20-30 minutes. +snoring -witnessed apnea +FATIGUE +she has had insomnia in the past -LEG CRAMPING Denies drug use or ETOH use Denies stimulant use Denies high salt diet but eats a lot of rice per her report. Social History Socioeconomic History Marital status: Spouse name: Not on file Number of children: Not on file Years of education: Not on file Highest education level: Not on file Occupational History Not on file Tobacco Use Smoking status: Never Smokeless tobacco: Never Substance and Sexual Activity Alcohol use: Yes Comment: very rare Drug use: Never Sexual activity: Yes Partners: Male control/protection: Surgical Comment: Tubal Other Topics Concern Not on file Social History Narrative Not on file Social Determinants of Health Financial Resource Strain: Not on file Food Insecurity: No Food Insecurity (02/15/2023) Hunger Vital Sign Worried About Running Out of Food in the Last Year: Never true Ran Out of Food in the Last Year: Never true Transportation Needs: Not on file Physical Activity: Not on file Stress: Not on file Social Connections: Not on file Intimate Partner Violence: Not on file Housing Stability: Not on file PMH: Past Medical History: Diagnosis Date Dysplasia of cervix, high grade ROXANNE 2 03/31/2023 Dysplasia of cervix, low grade (ROXANNE 1) 01/07/2022 Repeat pap 2022 Past Surgical History: Procedure Laterality Date COLPOSCOPY OF CERVIX W/BIOPSY 12/31/2021 LIGATE/CUT OVIDUCT(S) Bilateral No outpatient medications have been marked as taking for the 04/28/23 encounter (Office Visit) with Marilin Milian CRNP. Review of patient's allergies indicates: No Known Allergies There is no immunization history on file for this patient. Review of Systems: Review of Systems Constitutional: Negative for fatigue and fever. Eyes: Positive for visual disturbance. Respiratory: Negative for shortness of breath. Cardiovascular: Positive for chest pain. Gastrointestinal: Negative for abdominal pain. Neurological: Positive for dizziness and headaches. Psychiatric/Behavioral: Negative for dysphoric mood. The patient is nervous/anxious. Physical Exam: BP 188/110 (BP Site: Left Arm, BP Position: Sitting, BP Cuff Size: Regular) | Pulse 72 | Temp 36.9 C (98.5 F) (Tympanic) | Resp 16 | Ht 1.524 m (5') | Wt 68.6 kg (151 lb 3.2 oz) | LMP 04/20/2023 (Exact Date) | SpO2 99% | BMI 29.53 kg/m | BSA 1.7 m Physical Exam HENT: Head: Normocephalic. Eyes: Pupils: Pupils are equal, round, and reactive to light. Cardiovascular: Rate and Rhythm: Normal rate and regular rhythm. Pulmonary: Effort: Pulmonary effort is normal. Breath sounds: Normal breath sounds. Abdominal: General: Bowel sounds are normal. Palpations: Abdomen is soft. Tenderness: There is no abdominal tenderness. Musculoskeletal: General: Normal range of motion. Cervical back: Normal range of motion. Neurological: General: No focal deficit present. Mental Status: She is alert and oriented to person, place, and time. Psychiatric: Mood and Affect: Mood normal. Behavior: Behavior normal. Thought Content: Thought content normal. Judgment: Judgment normal. Assessment and Plan: 1. HTN, goal below 130/80 Seems rather sudden R/o Pheo with labs and consider CT abd - CBC WITH WBC DIFFERENTIAL; Future - COMPREHENSIVE METABOLIC PANEL; Future - TSH WITH FREE T4 IF INDICATED; Future - ALBUMIN / CREATININE RATIO, URINE; Future - EKG; Future - METANEPHRINES, FRACTIONATED, FREE, LCMSMS, PLASMA; Future - CATECHOLAMINES, FRACTIONATED, PLASMA; Future - EKG 2. Hypertensive urgency Add losartan/hctz RECHECK in 1 year - ECHO, COMPLETE (2D), TRANS-THORACIC; Future 3. Snoring No witnessed apnea - SLEEP MEDICINE REFERRAL OP 4. EKG abnormality Lvh ON EKG CHECK ECHO - ECHO, COMPLETE (2D), TRANS-THORACIC; Future I have advised the patient to call our office incase of any worsening or new symptoms. I spent a total of Greater than 55 mins (exact time 60 mins) on the date of service in preparation,delivery, and documentation of the care provided to Quirino Espinoza excluding any time spent in the performance of separately billed services. Lisette, RAZA, PRASHANTH [facility] documented in this encounter Procedure Notes * Carter Hannon, - 04/28/2023 1:21 PM ESTAssociated Order(s): EKG REASON FOR STUDY: HTN CONCLUSIONS: Normal sinus rhythm High QRS voltage may be normal variant or due to lve Borderline ECG No previous ECGs available Ventricular Rate: 73 Atrial Rate: 73 [place] Interval: 152 QRS Duration: 80 QT/QTc: 414/456 ms P-R-T [place]: 22 : 57 : 73 degrees documented in this encounter Plan of Treatment Upcoming Encounters Date Type Department Care Team (Late st Contact Info) Description 05/01/2023 8:30 AM EST Office Visit Sleep Disorders Ctr [facility] [address] [facility] [place] [phone] Ashia Maki CRNP [address] [place] [address] 05/07/2023 9:45 AM EST Imaging Radiology [facility] 1st Floor, [place] [address] [facility] [place] [address] 05/14/2023 2:30 PM EST Cardiac Studies Cardiac Studies, [facility] [address] [facility] [place] [address] 06/16/2023 12:30 PM EST Office Visit Gynecology/Obstetrics [facility] [address] [place] [address] Jasbir Linares MD [address] [place] [address] 11/02/2023 10:00 AM EDT Office Visit Gynecology/Obstetrics [facility] [address] [place] [address] Carey Sainz PA-C [address] [place] [address] Pending Results Name Type Priority Associated Diagnoses Date /Time TSH WITH FREE T4 IF INDICATED Lab Routine HTN, goal below 130/80 04/28/2023 2:04 PM EST ALBUMIN / CREATININE RATIO, URINE Lab Routine HTN, goal below 130/80 04/28/2023 2:04 PM EST METANEPHRINES, FRACTIONATED, FREE, LCMSMS, PLASMA Lab Routine HTN, goal below 130/80 04/28/2023 2:04 PM EST CATECHOLAMINES, FRACTIONATED, PLASMA Lab Routine HTN, goal below 130/80 04/28/2023 2:04 PM EST Scheduled Orders Name Type Priority Associated Diagnoses Orde r Schedule TSH WITH FREE T4 IF INDICATED Lab Routine HTN, goal below 130/80 Expected: 04/28/2023 (Approximate), Expires: 04/27/2024 ALBUMIN / CREATININE RATIO, URINE Lab Routine HTN, goal below 130/80 Expected: 04/28/2023 (Approximate), Expires: 04/27/2024 METANEPHRINES, FRACTIONATED, FREE, LCMSMS, PLASMA Lab Routine HTN, goal below 130/80 Expected: 04/28/2023, Expires: 04/28/2024 CATECHOLAMINES, FRACTIONATED, PLASMA Lab Routine HTN, goal below 130/80 Expected: 04/28/2023, Expires: 04/28/2024 ECHO, COMPLETE (2D), TRANS-THORACIC Echocardiology Routine Hypertensive urgency EKG abnormality Expected: 04/28/2023, Expires: 05/29/2025 Scheduled Referrals Name Type Priority Associated Diagnoses Orde r Schedule SLEEP MEDICINE REFERRAL OP Referral Within 10 days (routine) Snoring Ordered: 04/28/2023 Health Maintenance Due Date Last Done Comments Hepatitis B (1 of 3 - 3-dose series) 1981 Lipid Panel 1981 COVID-19 Vaccine (#1) 1981 Depression Screening 1993 DTaP,Tdap,and Td Vaccines (1 - Tdap) 2000 Mammogram 12/13/2022 12/13/2021 Influenza Vaccine (FLU shot) (#1) 2022 Pap Smear 10/27/2025 10/27/2022, 12/10/2021 Diabetes Screening 04/28/2026 04/28/2023 Cervical Cancer Screening 10/28/2027 HPV/Co-Test 10/28/2027 10/27/2022 [...] Procedure Name Priority Date/Time Associated Diagnosis Comments OH ECG ROUTINE ECG W/LEAST 12 LDS TRCG ONLY W/O I&R Routine 04/28/2023 1:21 PM EST HTN, goal below 130/80 documented in this encounter Results * (ABNORMAL) COMPREHENSIVE METABOLIC PANEL (04/28/2023 2:04 PM EST) BUN 17 6 - 20 mg/dL 04/28/2023 2:59 PM EST [facility] [place] [facility] Creatinine 0.8 0.5 - 1.0 mg/dL 04/28/2023 2:59 PM EST [facility] [place] [facility] Estimated Glomerular Filtration Rate >90 >=60 mL/min 04/28/2023 2:59 PM EST [facility] [place] [facility] Comment:eGFR is calculated b ased on the CKD-EPI 2020 equation Sodium 139 135 - 146 mmol/L 04/28/2023 2:59 PM EST [facility] [place] [facility] Potassium 4.1 3.5 - 5.1 mmol/L 04/28/2023 2:59 PM EST [facility] [place] [facility] Chloride 101 98 - 107 mmol/L 04/28/2023 2:59 PM EST [facility] [place] [facility] CO2 26 22 - 32 mmol/L 04/28/2023 2:59 PM EST [facility] [place] [facility] Anion Gap 12 7 - 15 mmol/L 04/28/2023 2:59 PM EST [facility] [place] [facility] Glucose 96 70 - 120 mg/dL 04/28/2023 2:59 PM EST [facility] [place] [facility] Albumin 4.6 3.8 - 5.0 g/dL 04/28/2023 2:59 PM EST [facility] [place] [facility] AST 17 10 - 35 U/L 04/28/2023 2:59 PM EST [facility] [place] [facility] Alkaline Phosphatase 114 35 - 130 U/L 04/28/2023 2:59 PM EST [facility] [place] [facility] Bilirubin, Total <0.2 <=1.2 mg/dL 04/28/2023 2:59 PM EST [facility] [place] [facility] Calcium 10.3(H) 8.4 - 10.2 mg/dL 04/28/2023 2:59 PM EST [facility] [place] [facility] Protein 8.1 6.0 - 8.3 g/dL 04/28/2023 2:59 PM EST [facility] [place] [facility] ALT 13 10 - 35 U/L 04/28/2023 2:59 PM EST [facility] [place] [facility] Blood Venous blood specimen / Unknown Venipuncture / Unknown 04/28/2023 2:04 PM EST 04/28/2023 2:04 PM EST Marilin ALFORD [facility] BLOOD ORDE RABLES [facility] [address] [place] [id number] * EKG (04/28/2023 1:21 PM EST) 04/28/2023 1:21 PM EST Narrative Procedure Note Carter Hannon, - 04/28/2023 1:21 PM EST REASON FOR STUDY: HTN CONCLUSIONS: Normal sinus rhythm High QRS voltage may be normal variant or due to lve Borderline ECG No previous ECGs available Ventricular Rate: 73 Atrial Rate: 73 [place] Interval: 152 QRS Duration: 80 QT/QTc: 414/456 ms P-R-T [place]: 22 : 57 : 73 degrees Marilin ALFORD EKG [facility] documented in this encounter Visit Diagnoses Diagnosis HTN, goal below 130/80- Primary Unspecified essential hypertension Hypertensive urgency Unspecified essential hypertension Snoring Other dyspnea and respiratory abnormality EKG abnormality Nonspecific abnormal electrocardiogram (ECG) (EKG) documented in this encounter Care Teams Shuttle Filler Relationship Specialty Start Date End Date Timur Frias II, DO [address] [facility] [place] [address] PCP - General Family Medicine 12/22/13 documented as of this encounter"
--- OUTSIDE RECORDS SUMMARY | 2023-04-28 22:22 | External Medical Summary ---
Author Name Unknown Address Unknown Organization K01:[facility] [place] - [address] [place] [address] Laboratory Report Ordering Provider Test Date Status SHERRI HAMM 04/28/2023 14:04:32 Final Normal: <30 mg/g creatinine< br/>High: 30-300 mg/g creatinine
Very High: >300 mg/g creatinine
Nephrotic: >2200 mg/g creatinine Observation Date Value Abnormality Reference (Units ) Status Albumin, Urine 04/28/2023 14:04:32 18.66 (mg/dL) Final Creatinine, Urine 04/28/2023 14:04:32 107 (mg/dL) Final Albumin/Creatinine [Mass Ratio] in Urine 04/28/2023 14:04:32 174 Above high normal <30 (mg/g Creat) Final Performing Location [facility] [place] - [address] [place] [address]
--- OUTSIDE RECORDS SUMMARY | 2023-04-28 22:22 | External Medical Summary | Summary of Care ---
Author Name Unknown Organization [facility] Address [address] [facility] [place] [address] Phone [phone] Care Team Providers Care Slitter Scorer Name Role Phone Rodriguez QIU DO, Harold Winton Primary Care Provi deborah Reason for Referral * Precert (Within 10 days (routine)) - Authorized Specialty Diagnoses / Procedures Referred By Grayson dempsey Referred To Contact Cardiac Studies Diagnoses Hypertensive urgency EKG abnormality Procedures ECHO, COMPLETE (2D), TRANS-THORACIC Marilin Milian CRNP [address] [place] [address] Referral ID Status Reason Start Date Expiration Date V isits Requested Visits Authorized [id number] Authorized Precert 04/28/2023 999 999 * Evaluate & Treat - Unlimited Visits (Within 10 days (routine)) - Authorized Specialty Diagnoses / Procedures Referred By Grayson dempsey Referred To Contact Sleep Medicine / Sleep Disorders Diagnoses Snoring Marilin Milian CRNP [address] [place] [address] Referral ID Status Reason Start Date Expiration Date Visits Requested Visits Authorized [id number] Authorized Specialty Services Required 04/28/2023 2 2 [...] Description 04/28/2023 1:00 PM EST Office Visit [facility] [address] [place] [address] Marilin Milian CRNP [address] [place] [address] HTN, goal below 130/80*; Hypertensive urgency; Snoring; [...] Sign Reading Time Taken Comments Blood Pressure 184/120 04/28/2023 2:54 PM EST Pulse 87 04/28/2023 2:54 PM EST Temperature 36.9 C (98.5 F) 04/28/2023 12:[address] Respiratory Rate 16 04/28/2023 2:54 PM EST Oxygen Saturation 98% 04/28/2023 2:54 PM EST Inhaled Oxygen Concentration - - [...] mother and grandmother have high blood pressure. [place] pain or pressure in chest for 20-30 [...] of separately billed services. Lisette, RAZA, PRASHANTH [facility] documented in this encounter Plan of Treatment Upcoming Encounters Date Type Department Care Team (Late st Contact Info) Description 05/01/2023 8:30 AM EST Office Visit Sleep Disorders Ctr [facility] [address] [place] [phone] Ashia Maki CRNP [address] [place] [address] 05/07/2023 9:45 AM EST Imaging Radiology [facility] [address] [place] [address] 05/14/2023 2:30 PM EST Cardiac Studies [facility], [facility] [place] [address] 06/16/2023 12:30 PM EST Office Visit Gynecology/Obstetrics [facility] [address] [facility] [place] [address] Jasbir Linares MD [address] [place] [address] 11/02/2023 10:00 AM EDT Office Visit Gynecology/Obstetrics [facility] [address] [place] [address] Carey Sainz PA-C [address] [place] [address] Pending Results Name Type Priority Associated Diagnoses Date /Time COMPREHENSIVE METABOLIC PANEL Lab Routine HTN, goal below 130/80 04/28/2023 2:04 PM EST TSH WITH FREE T4 IF INDICATED Lab [...] Type Priority Associated Diagnoses Orde r Schedule COMPREHENSIVE METABOLIC PANEL Lab Routine HTN, goal below 130/80 Expected: 04/28/2023 (Approximate), Expires: 04/27/2024 TSH WITH FREE T4 IF INDICATED Lab Routine HTN, goal below 130/80 Expected: 04/28/2023 (Approximate), Expires: 04/27/2024 ALBUMIN / CREATININE RATIO, URINE Lab Routine HTN, goal below 130/80 Expected: 04/28/2023 (Approximate), Expires: 04/27/2024 EKG EKG Routine HTN, goal below 130/80 Expected: 04/28/2023 (Approximate), Expires: 05/29/2024 METANEPHRINES, FRACTIONATED, FREE, LCMSMS, PLASMA Lab Routine [...] as of this encounter Visit Diagnoses Diagnosis HTN, goal below 130/80- Primary Unspecified essential hypertension Hypertensive urgency Unspecified essential hypertension Snoring Other dyspnea and respiratory abnormality EKG abnormality Nonspecific abnormal electrocardiogram (ECG) (EKG) documented in this encounter Care Teams Slitter Scorer Relationship Specialty Start Date End Date Timur Frias II, DO [address] [place] [address] PCP - General Family Medicine 12/22/13 documented as of this encounter"
--- OUTSIDE RECORDS SUMMARY | 2023-04-28 22:22 | External Medical Summary | Summary of Care ---
Author Name Unknown Organization [facility] Address [address] [facility] [address] Phone [phone] Care Team Providers Care Edm Operator Name Role Phone Rodriguez QIU DO, Harold Winton Primary Care Provi deborah Reason for Visit * Reason Comments Outpatient Testing Encounter Details Date Type Department Care Team (Late st Contact Info) Description 04/28/2023 2:00 PM EST Laboratory Laboratory, [facility] [phone] [facility] 132 [place] [address] HTN, goal below 130/80 Allergies No known active allergiesdocumented as of [...] the morning. 30 Tablet 11 04/28/2023 Active documented as of this encounter (statuses as of 04/28/2023) Active Problems Problem Noted Date Diagnosed Date HTN, goal below 130/80 04/28/2023 Snoring 04/28/2023 Hypertensive urgency 04/28/2023 EKG abnormality 04/28/2023 Dysplasia of cervix, high grade ROXANNE 2 03/31/2023 Dysplasia of cervix, low grade (ROXANNE 1) Overview: Repeat pap 2022 documented as of [...] on file documented as of this encounter Plan of Treatment Upcoming Encounters Date Type Department Care Team (Late st Contact Info) Description 05/07/2023 9:45 AM EST Imaging Radiology [facility] 1st [facility] [address] [place] [address] 06/16/2023 12:30 PM EST Office Visit Gynecology/Obstetrics [facility] [address] [place] [address] Jasbir Linares MD [address] [place] [address] 11/02/2023 10:00 AM EDT Office Visit Gynecology/Obstetrics [facility] [address] [place] [address] Carey Sainz PA-C [address] [place] [address] Pending Results Name Type Priority Associated Diagnoses [...] goal below 130/80 04/28/2023 2:04 PM EST Health Maintenance Due Date Last Done [...] Procedure Name Priority Date/Time Associated Diagnosis Comments DIFFERENTIAL, AUTOMATED Routine 04/28/2023 2:04 PM EST HTN, goal below 130/80 CBC Routine 04/28/2023 2:04 PM EST HTN, goal below 130/80 CBC Routine 04/28/2023 2:04 PM EST HTN, goal below 130/80 documented in this encounter Results * DIFFERENTIAL, AUTOMATED (04/28/2023 2:04 PM EST) WBC 10.28 4.00 - 10.80 K/uL 04/28/2023 2:15 PM EST [facility] [place] [facility] Neutrophils % 67.9 40.0 - 75.0 % 04/28/2023 2:15 PM EST [facility] [place] [facility] Lymphocytes % 23.9 18.0 - 42.0 % 04/28/2023 2:15 PM EST [facility] [place] [facility] Monocytes % 5.5 1.0 - 11.0 % 04/28/2023 2:15 PM EST [facility] [place] [facility] Eosinophils % 1.7 0.0 - 6.0 % 04/28/2023 2:15 PM EST [facility] [place] [facility] Basophils % 1.0 0.0 - 2.0 % 04/28/2023 2:15 PM EST [facility] [place] [facility] Absolute Neutrophils 6.98 1.80 - 7.70 K/uL 04/28/2023 2:15 PM EST [facility] [place] [facility] Absolute Lymphocytes 2.46 1.00 - 4.80 K/ul 04/28/2023 2:15 PM EST [facility] [place] [facility] Absolute Monocytes 0.57 0.00 - 1.10 K/uL 04/28/2023 2:15 PM EST [facility] [place] [facility] Absolute Eosinophils 0.17 0.00 - 0.70 K/uL 04/28/2023 2:15 PM EST [facility] [place] [facility] Absolute Basophils 0.10 0.00 - 0.20 K/uL 04/28/2023 2:15 PM EST [facility] [place] [facility] Blood Venous blood specimen / Unknown Venipuncture / Unknown 04/28/2023 2:04 PM EST 04/28/2023 2:04 PM EST [facility] [place] [facility] 132 [facility] [place] [address] * (ABNORMAL) CBC (04/28/2023 2:04 PM EST) WBC 10.28 4.00 - 10.80 K/uL 04/28/2023 2:15 PM EST [facility] [place] [facility] RBC 4.43 3.85 - 5.15 M/uL 04/28/2023 2:15 PM EST [facility] [place] [facility] HGB 12.1 12.0 - 15.3 g/dL 04/28/2023 2:15 PM EST [facility] [place] [facility] HCT 37.8 36.0 - 45.2 % 04/28/2023 2:15 PM EST [facility] [place] [facility] MCV 85.3 81.5 - 97.5 fL 04/28/2023 2:15 PM EST [facility] [place] [facility] MCH 27.3 27.0 - 34.0 pg 04/28/2023 2:15 PM EST [facility] [place] [facility] MCHC 32.0 32.0 - 36.0 g/dL 04/28/2023 2:15 PM EST [facility] [place] [facility] RDW 13.9 11.5 - 15.5 % 04/28/2023 2:15 PM EST [facility] [place] [facility] PLT 437(H) 140 - 400 K/uL 04/28/2023 2:15 PM EST [facility] [place] [facility] MPV 9.5 6.6 - 11.1 fL 04/28/2023 2:15 PM EST [facility] [place] [facility] Blood Venous blood specimen / Unknown Venipuncture / Unknown 04/28/2023 2:04 PM EST 04/28/2023 2:04 PM EST Marilin [facility] [place] [facility] [address] [place] [address] documented in this encounter Visit Diagnoses Diagnosis HTN, goal below 130/80 Unspecified essential hypertension documented in this encounter Care Teams Edm Operator Relationship Specialty Start Date End Date Abhi Frias IIold DO Martha [address] [place] [address] PCP - General Family Medicine 12/22/13 documented as of this encounter
--- OUTSIDE RECORDS SUMMARY | 2023-04-28 22:22 | External Medical Summary | Summary of Care ---
Author Name Unknown Organization [facility] Address [address] [facility] [address] Phone [phone] Care Team Providers Care Materials Scheduler Name Role Phone Rodriguez QIU DO, Harold Winton Primary Care Provi deborah Reason for Visit * Reason Comments Outpatient Testing Encounter Details Date Type Department Care Team (Late st Contact Info) Description 04/28/2023 2:00 PM EST Laboratory Laboratory, [facility] [phone] [facility] 132 [place] [address] HTN, goal below 130/80 Allergies No known [...] Description 05/07/2023 9:45 AM EST Imaging Radiology [facility] 1st [facility] [address] [place] [address] 06/16/2023 12:30 PM EST Office Visit Gynecology/Obstetrics [facility] [address] [place] [address] Jasbir Linares MD [address] [place] [address] 11/02/2023 10:00 AM EDT Office Visit Gynecology/Obstetrics [facility] [address] [place] [address] Carey Sainz PA-C [address] [place] [address] Pending Results Name Type Priority Associated Diagnoses [...] [facility] [place] [facility] 132 [facility] [place] [address] * (ABNORMAL) CBC (04/28/2023 2:04 PM EST) [...] [place] [facility] [address] [place] [address] documented in this encounter Visit Diagnoses Diagnosis HTN, goal below 130/80 Unspecified essential hypertension documented in this encounter Care Teams Materials Scheduler Relationship Specialty Start Date End Date Abhi Frias IIold DO Martha [address] [place] [address] PCP - General Family Medicine 12/22/13 documented as of this encounter
--- OUTSIDE RECORDS SUMMARY | 2023-04-28 22:22 | External Medical Summary | Summary of Care ---
Author Name Unknown Organization [facility] Address [address] [facility] [place] [address] Phone [phone] Care Team Providers Care Polysom Tech Name Role Phone Rodriguez QIU DO, Harold Winton Primary Care Provi deborah Reason for Referral * Precert (Within 10 days (routine)) - Authorized Specialty Diagnoses / Procedures Referred By Grayson dempsey Referred To Contact Cardiac Studies Diagnoses Hypertensive urgency EKG abnormality Procedures ECHO, COMPLETE (2D), TRANS-THORACIC Marilin Milian CRNP [address] [place] [address] Referral ID Status Reason Start Date Expiration Date V isits Requested Visits Authorized [id number] Authorized Precert 04/28/2023 999 999 * Evaluate & Treat - Unlimited Visits (Within 10 days (routine)) - Authorized Specialty Diagnoses / Procedures Referred By Grayson dempsey Referred To Contact Sleep Medicine / Sleep Disorders Diagnoses Snoring Marilin Milian CRNP [address] [place] [address] Referral ID Status Reason Start Date Expiration Date Visits Requested Visits Authorized [id number] Authorized Specialty Services Required 04/28/2023 2 2 [...] Description 04/28/2023 1:00 PM EST Office Visit [facility] [address] [place] [address] Marilin Milian CRNP [address] [place] [address] HTN, goal below 130/80*; Hypertensive urgency; Snoring; [...] Sign Reading Time Taken Comments Blood Pressure 188/110 04/28/2023 12:58 PM EST Pulse 72 04/28/2023 12:58 PM EST Temperature 36.9 C (98.5 F) 04/28/2023 12:[address] Respiratory Rate 16 04/28/2023 12:58 PM EST Oxygen Saturation 99% 04/28/2023 12:58 PM EST Inhaled Oxygen Concentration - - [...] mother and grandmother have high blood pressure. [place] pain or pressure in chest for 20-30 [...] [facility] documented in this encounter Plan of Treatment Upcoming Encounters Date Type Department Care Team (Late st Contact Info) Description 05/07/2023 9:45 AM EST Imaging Radiology [facility] 1st [facility] [place] [address] [place] [address] 06/16/2023 12:30 PM EST Office Visit Gynecology/Obstetrics [facility] [address] [place] [address] Jasbir Linares MD [address] [place] [address] 11/02/2023 10:00 AM EDT Office Visit Gynecology/Obstetrics [facility] [address] [place] [address] Carey Sainz PA-C [address] [place] [address] Pending Results Name Type Priority Associated Diagnoses Date /Time CBC WITH WBC DIFFERENTIAL Lab Routine HTN, goal below 130/80 04/28/2023 2:04 PM EST COMPREHENSIVE METABOLIC PANEL Lab Routine HTN, goal [...] Type Priority Associated Diagnoses Orde r Schedule CBC WITH WBC DIFFERENTIAL Lab Routine HTN, goal below 130/80 Expected: 04/28/2023, Expires: 05/29/2024 COMPREHENSIVE METABOLIC PANEL Lab Routine HTN, goal [...] (EKG) documented in this encounter Care Teams Polysom Tech Relationship Specialty Start Date End Date Timur Frias II, DO [address] [facility] [place] [address] PCP - General Family Medicine 12/22/13 documented as of this encounter"
[2023-04-28] MEDS ORDERED: ACETAMINOPHEN 325 MG TAB PO PRN (22:24)
[2023-04-28] MEDS ORDERED: NITROGLYCERIN SL 0.4 MG/TAB TAB SL PRN (22:24)
[2023-04-28] MEDS ORDERED: LABETALOL HCL IV 5 MG/ML 20ML IV PRN (22:24)
[2023-04-29 06:28] LABS: Basophils # (auto) 0.09 K/uL (0.00-0.20); Basophils % (auto) 0.8 %; Eosinophils # (auto) 0.19 K/uL (0.00-0.50); Eosinophils % (auto) 1.7 %; Hematocrit (blood only) 33.8 % (37.0-47.0); Hemoglobin 10.8 g/dl (12.0-16.0); Immature Granulocytes # (auto) 0.04 K/uL (0.01-0.20); Immature Granulocytes % (auto) 0.4 %; Lymphocytes # (auto) 2.39 K/uL (1.20-3.40); Lymphocytes % (auto) 21.8 %; Mean Corpuscular Hemoglobin 26.7 pg (25.0-34.0); Mean Corpuscular Volume 83.5 fL (80.0-100.0); Mean Platelet Volume 9.6 fL (9.4-12.4); Monocytes # (auto) 0.77 K/uL (0.11-0.59); Neutrophils # (auto) 7.49 K/uL (1.40-6.50); Neutrophils % (auto) 68.3 %; Platelet Count 395 K/uL (130-400); RDW Coefficient of Variation 13.8 % (11.5-14.5); RDW Standard Deviation 42.4 fL (36.4-46.3); Red Blood Count 4.05 M/uL (4.20-5.40); White Blood Count 10.97 K/ul (4.8-10.8)
[2023-04-29 06:42] LABS: BUN Creatinine Ratio 34.2 (10-20); Calcium 9.6 mg/dl (8.6-10.3); Creatinine Clr Calc Pharmacy 87.3 ml/min; Est GFR (African American) 118.6 ml/min; Est GFR (Non-African American) 102.3 ml/min; Magnesium 2.2 mg/dl (1.7-2.4); Potassium 3.9 mmol/L (3.5-5.1)
[2023-04-29 07:11] VITALS: RESP 19; TEMP 98.1
[2023-04-29] MEDS ORDERED: LOSARTAN/HCTZ 50/12.5MG TAB PO SCH (09:00)
--- NOTE | 2023-04-29 09:22 | Electrocardiogram Report ---
Test Reason : Blood Pressure : / mmHG Vent. Rate : 074 BPM Atrial Rate : 074 BPM P-R Int : 152 ms QRS Dur : 074 ms QT Int : 392 ms P-R-T Axes : 024 011 054 degrees QTc Int : 435 ms Normal sinus rhythm Normal ECG No previous ECGs available Confirmed by Dano Lara ([id number]) on 04/29/2023 9:21:37 AM Referred By: Marilin Milian Confirmed By:Dano Lara
--- NOTE | 2023-04-29 09:22 | Electrocardiogram Report ---
Test Reason : Blood Pressure : / mmHG Vent. Rate : 074 BPM Atrial Rate : 074 BPM P-R Int : 176 ms QRS Dur : 086 ms QT Int : 448 ms P-R-T Axes : 059 044 066 degrees QTc Int : 497 ms Normal sinus rhythm Nonspecific T wave abnormality Lateral leads Prolonged QT Abnormal ECG When compared with ECG of 28-APR-2023 16:06, QT has lengthened Nonspecific T wave abnormality now present Lateral leads Confirmed by Dano Lara ([id number]) on 04/29/2023 9:22:10 AM Referred By: Marilin Milian Confirmed By:Dano Lara
[2023-04-29 10:02] LABS: Chol HDL Ratio 4.1 (0-5)
[2023-04-29 11:14] VITALS: BP 123/84; PULSE 82; O2SAT 97
--- NOTE | 2023-04-29 11:15 | Cardiology Consultation ---
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 * Plan for discharge after renal artery duplex results are available. * No additional workup/treatment for chest discomfort recommended at this time. * Plan for outpatient cardiology and primary care follow-up History of Present Illness Attending Physician: Arlette Hagan MD History of Present Illness Quirino Espinoza is a 42 year old female seen in cardiology consultation per the request of Dr Burnham for he the evaluation of hypertensive urgency and chest pressure. Patient accompanied by her , Orlin. She lives with her and 2 teenage daughters. She notes that historically she has not been diagnosed with high blood pressure, however her blood pressure has not been monitored on a regular basis as of recently. Yesterday she presented for a routine follow-up visit with gynecology at [facility] and she was found to have a blood pressure of 200/ 120 mm Hg. Patient states that the deep prior to the appointment, she been having on and off again vague symptoms of headache and dizziness. She states that she does not get frequent headaches at baseline. The day before she had an episode of chest pressure that lasted approximately 20 minutes. She and her both describe that the chest pressure episode took place in the setting of high stress at home with a lot going on including their dog barking. The patient has not had any discomfort yesterday, overnight oral today thus far. After being found to be hypertensive at the gynecology office, she was seen by family practice who referred to the emergency department. Her initial blood pressure was 217/139. She subsequently received labetalol 10 mg x 2 doses and a dose of IV hydralazine. Blood pressure trended toward a significant improvement overnight last night and she received a dose of oral losartan/HCTZ. Her most recent blood pressure taken while I was in the room with her at 11:13 AM was down to 123/84. Family History: Patient believes her mother was diagnosed with high blood pressure in her 50s. No history of coronary heart disease Social History: Non-smoker, , lives with spouse and 2 teenage daughters Allergies Allergy/AdvReac Type Severity Reaction Status Date / Time pineapple Allergy Intermediate RASH Verified 09/01/15 13:26 Home Medications Medication Instructions Recorded Confirmed Type losartan 50 mg-hydrochlorothiazide 1 tab PO DAILY 04/28/23 04/28/23 History 12.5 mg tablet Patient History Medical History Pyelonephritis Asthma Social History Smoking Status: Never smoker Second Hand Exposure: No; Do You Dip or Chew Tobacco: No; Tobacco Cessation Education Requested by Patient: No Hx Alcohol Use: Yes Alcohol type: wine Hx Substance Use: No Preferred Language: Thai Communication Ability: Effective [employer] Vendor Required: No Beliefs That Will Affect Care: None Current Living Situation: Spouse and Family Current Living Situation Comment: Lives w/ and family Other Information That Helps Us Care for You: No Feels Safe at Home: Yes Safety Concerns: Feels Safe At This Time Review of Systems Review of Systems: All systems reviewed & are unremarkable except as noted in HPI & below Physical Exam Constitutional: WD/WN, vitals as above well developed and comfortable; no acute distress and not ill appearing Eyes: PERRL, conjunctivae normal, anicteric sclerae Respiratory: normal respiratory effort, lungs clear to auscultation Cardiovascular: RRR, no murmur, no edema Gastrointestinal (Abdomen): normal bowel sounds, soft, nontender, no hepatosplenomegaly Neurologic: PERRL, EOMI, accommodation nl, no face palsy, no dysarthria Results & Data Vital Signs (Past 12 Hours) Vital Signs Temp Pulse Pulse Resp BP Pulse Ox O2 Del Method 04/29/23 10:00 75 04/29/23 07:10 36.7 C 76 19 133/86 98 Room Air 04/29/23 03:41 36.6 C 75 18 104/68 97 Room Air Laboratory Results Cardiac Enzymes 04/28/23 04/28/23 04/29/23 Range/Units 16:07 21:12 05:34 AST 16 (13-39) U/L Troponin I High Sens 3.8 3.7 6.0 (0-14) pg/ml Coagulation 04/28/23 Range/Units 16:07 PT 10.1 (9.0-12.0) Seconds APTT 26 (21-31) Seconds Lipids 04/29/23 Range/Units 05:34 Triglycerides 99 (0-150) mg/dl Cholesterol 208 H (0-200) mg/dl HDL Cholesterol 51 mg/dl Cholesterol/HDL Ratio 4.1 (0-5) CBC 04/28/23 04/29/23 Range/Units 16:07 05:34 WBC 11.13 H 10.97 H (4.8-10.8) K/ul RBC 4.51 4.05 L (4.20-5.40) M/uL Hgb 12.1 10.8 L (12.0-16.0) g/dl Hct 37.0 33.8 L (37.0-47.0) % Plt Count 423 H 395 (130-400) K/uL Neut # (Auto) 7.07 H 7.49 H (1.40-6.50) K/uL Lymph # (Auto) 3.07 2.39 (1.20-3.40) K/uL Clark # (Auto) 0.64 H 0.77 H (0.11-0.59) K/uL Eos # (Auto) 0.21 0.19 (0.00-0.50) K/uL Baso # (Auto) 0.12 0.09 (0.00-0.20) K/uL Comprehensive Metabolic Panel 04/28/23 04/29/23 Range/Units 16:07 05:34 Sodium 134 L 136 (136-145) mmol/L Potassium 3.7 3.9 (3.5-5.1) mmol/L Chloride 101 102 (98-107) mmol/L Carbon Dioxide 25 27 (21-32) mmol/L BUN 20 25 H (6-23) mg/dl Creatinine 0.73 0.73 (0.6-1.2) mg/dl Glucose 102 H 93 (70-99(Fasting)) mg/dl Calcium 10.1 9.6 (8.6-10.3) mg/dl AST 16 (13-39) U/L ALT 10 (7-52) U/L Alkaline Phosphatase 101 (34-104) U/L Total Protein 8.8 H (6.0-8.3) gm/dl Albumin 4.7 (3.4-5.0) gm/dl Intake and Output 04/28/23 04/29/23 04/29/23 22:59 06:59 14:59 Intake Total 400 / 400 Balance 400 / 400 Intake: Oral 400 / 400 Other: # Unmeasured Voids 1 Weight 68 kg 68 kg Weight Measurement Method Standing Scale Built in [facility] Diagnostic Findings EKG performed 04/29/2023 and interpret independently: Sinus rhythm at 74 bpm, nonspecific T wave flattening in the lateral leads. Left ventricular hypertrophy suggested by voltage criteria. Echocardiogram performed today and interpreted pendantly: There is mild concentric left ventricular hypertrophy Left ventricular wall motion is normal, LVEF normal in the range of 60-65% No significant valvular disease Grade 1 diastolic dysfunction Telemetry reveals sinus rhythm in the 80s.
--- NOTE | 2023-04-29 11:53 | Hospitalist Progress Note ---
Date of Service April 29, 2023 Assessment & Plan (1) Hypertensive urgency: Plan: Pt is a 42yoF with PMhx significant for cervical dysplasia, elevated BP levels though not yet on medication female with past med history significant for dysplasia of cervix high-grade who was at [employer] today when she was found to high blood pressure and was sent to PCPs office and at PCPs office she was given losartan and hydrochlorothiazide but still blood pressure pressure was very high so she was sent to the ER. In the ER blood pressure on presentation was 217/139. Received couple of doses of IV labetalol and 1 dose of IV hydralazine. Resting comfortably. Patient states she had chest pain for 20 minutes yesterday. Yesterday all day she had headache and dizziness. Currently she has mild headache. Currently no chest pain or shortness of breath. Denies any blurred visions or double visions. No nausea. No cough. No fevers. No runny nose or sore throat. No abdominal pain. Normal bowel and bladder movements. Otherwise she is active. States her mother and grandmother had blood pressure diagnosed in the 50s. Hypertensive urgency Also some dizziness and headache Had some chest pain yesterday Currently has mild headache Started on losartan/ hydrochlorothiazide(50/12.5mg) by the PCP today Received IV labetalol and IV hydralazine in the ER Will continue with the losartan /hydrochlorothiazide IV labetalol as needed Will follow echo Close monitoring telemetry floor Cardiac consult in a.m. for further recommendations Chest pain Currently symptomatic Initial troponin and EKG okay Will follow serial enzymes and echo DVT prophylaxis SCDs for now Disposition Telemetry floor Full code Admission and Anticipated Discharge Date Admission Date: April 28, 2023 Subjective Pt was seen in the AM, sitting up in bed. States that she was still having episodes of dizziness and headache though the frequency and intensity had decreased. States she has a family Hx of HTN on her mother's side of the family. States that 2022 was a very stressful year for her. Lost her adopted son suddenly and had to fly to [facility] to go bury him, currently dealing with ramifications from that loss. 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 States that she is following with a counselor. Denies use of lots of salt in her diet or chronic NSAID use. States that she was aware that she had elevated blood pressure levels at her last PCP visit but not to this degree. Review of Systems Review of Systems: All systems reviewed & are unremarkable except as noted in Subjective Physical Exam Physical Exam: General: Alert, oriented. No acute distress Skin: No noted rashes or bruises Psych: Appropriate mood and affect Neuro: No gross deficits HEENT: NC/AT Chest: Nontender to palpation. CV: RRR Resp: Breath sounds clear bilaterally, no increased effort of breathing. Abdomen: Soft, nontender, nondistended. Extremities: No edema in lower extremities bilaterally. Results & Data Results & Data Vital Signs (Past 12 Hours) Vital Signs Temp Pulse Pulse Resp BP BP Pulse Ox 04/29/23 07:10 36.7 C 76 19 133/86 98 04/29/23 03:41 36.6 C 75 18 104/68 97 04/28/23 22:28 97 H 04/28/23 22:24 36.8 C 96 H 16 131/88 98 04/28/23 21:30 91 H 15 97 04/28/23 21:15 131/97 04/28/23 21:04 86 04/28/23 21:00 86 16 133/90 97 04/28/23 20:45 89 18 136/97 97 04/28/23 20:33 89 23 149/104 H 99 04/28/23 20:15 162/105 H 04/28/23 20:15 93 H 12 99 04/28/23 20:00 92 H 15 99 04/28/23 20:00 157/104 H 04/28/23 19:45 87 15 157/100 H 98 O2 Del Method 04/29/23 07:10 Room Air 04/29/23 03:41 Room Air 04/28/23 22:28 04/28/23 22:24 Room Air 04/28/23 21:30 04/28/23 21:15 04/28/23 21:04 04/28/23 21:00 04/28/23 20:45 04/28/23 20:33 04/28/23 20:15 04/28/23 20:15 04/28/23 20:00 04/28/23 20:00 04/28/23 19:45
--- NOTE | 2023-04-29 14:09 | Discharge Summary ---
Discharge Summary Date of Service April 29, 2023 Notes For Next Care Provider Please ensure close follow up with Cardiology Medication Changes From Visit Losartan-HCTZ 50-12.5mg daily Admission HPI Per Admitting Provider 42-year-old female with past med history significant for dysplasia of cervix high-grade who was at [facility] today when she was found to high blood pressure and was sent to PCPs office and at PCPs office she was given losartan and hydrochlorothiazide but still blood pressure pressure was very high so she was sent to the ER. In the ER blood pressure on presentation was 217/139. Received couple of doses of IV labetalol and 1 dose of IV hydralazine. Resting comfortably. Patient states she had chest pain for 20 minutes yesterday. Yesterday all day she had headache and dizziness. Currently she has mild headache. Currently no chest pain or shortness of breath. Denies any blurred visions or double visions. No nausea. No cough. No fevers. No runny nose or sore throat. No abdominal pain. Normal bowel and bladder movements. Otherwise she is active. States her mother and grandmother had blood pressure diagnosed in the 50s. Past medical history. As mentioned above Past surgical history. Colposcopy of cervix with biopsy. Ligation of oviducts. Social history. . No smoking. Alcohol rare. No drug use. Family history. Father has diabetes. Admission Exam Per Admitting Provider General- Not in distress Head- atraumatic Eyes- PERRL. ENT- oropharynx clear Neck- supple, no JVD. Lungs- clear to auscultation no wheezing or crckles. Heart- regular rhythm; no murmur, no gallop. Abdomen- normal bowel sounds, soft, nontender, no distension. Extremities- no pretibial edema, no erythema seen. Neuro- alert, oriented x 3; PERRL, no facial palsy; no dysarthria; moves extremities. Skin- warm & dry Principal Dx & Hospital Course #1 = Principal Diagnosis (1) Chest pressure: (2) Dizziness: (3) Headache: (4) Hypertensive urgency: Plan Pt is a 42yoF with PMhx significant for cervical dysplasia, elevated BP levels in the past but was not yet on medication. Reportedly she was at the [facility] office on the day of admission and it was noted that her BP was very high. She was sent to her PCP's office and at the PCPs office she was given losartan and hydrochlorothiazide but her BP remained high so she was sent to the ED. In the ER, blood pressure on presentation was 217/139. Received 2 doses of IV labetalol and 1 dose of IV hydralazine. Patient stated she had chest pain for 20 minutes the day of admission, also with headache and dizziness all day. Denied shortness of breath, blurry vision or double vision, nausea, cough, fevers, runny nose, sore throat, abdominal pain. Stated that her mother and grandmother had blood pressure diagnosed in the 50s. Hypertensive urgency BP 217/139 on admission Chest XRAY, CT head and renal artery duplex all unremarkable Received IV labetalol 10mg x2 and IV hydralazine 10mg in the ER Received a dose of PO losartan/ hydrochlorothiazide(50/12.5mg) the AM of discharge, BP stable at 123/84 Was seen by Cardiology, recommended/stated the following: -Echo noted mild LVH, early chronically elevated BP changes -renal duplex with no noted renal artery stenosis -Continue losartan 50 mg/HCTZ 12.5 mg daily -no further workup for chest pain was recommended (see below) -outpt cardiology and PCP follow up Pt discharged with losartan 50 mg/HCTZ 12.5 mg daily PCP and cardiology follow up after discharge Chest pain Was symptomatic EKG with NSR, qtc of 497 hs-trop normal trend of 3.8 to 3.7 to 6.0 Echo with noted mild LVH, EF 60-65%, Grade 1 diastolic dysfunction Cardiology noting above no further workup recommended Discharge Exam General: Alert, oriented. No acute distress Skin: No noted rashes or bruises Psych: Appropriate mood and affect Neuro: No gross deficits HEENT: NC/AT Chest: Nontender to palpation. CV: RRR Resp: Breath sounds clear bilaterally, no increased effort of breathing. Abdomen: Soft, nontender, nondistended. Extremities: No edema in lower extremities bilaterally. Updated Medication List Medication Instructions Recorded Confirmed Type losartan 50 mg-hydrochlorothiazide 1 tab PO DAILY #30 tabs 04/29/23 Rx 12.5 mg tablet Hospital Stay Data Consultations 04/28/23 19:09 ED Decision to Admit Stat 04/29/23 08:00 Consult Cardiology Routine Diagnostic Imagining Performed 04/28/23 16:40 CT head/brain wo con Stat 04/29/23 09:31 US duplex renal artery Routine Chest X-Ray 04/28/23 16:03 XR chest 1V not portable CLINICAL HISTORY: Chest pain, nonspecific TECHNIQUE: Single frontal radiograph of the chest was obtained. Comparison: Comparison is made to chest radiograph 07/26/2016 FINDINGS: No lines and tubes are seen. The cardiomediastinal silhouette is normal. The lungs are clear. No evidence of pleural effusion or pneumothorax. IMPRESSION: No acute chest disease. ACT 112: Negative or not required by law. Electronically signed by: Curtis Parker M.D. 04/28/2023 4:[address] 04/28/23 16:40 CT SCAN OF THE BRAIN WITHOUT IV CONTRAST CLINICAL HISTORY: Headache. Hypertension. COMPARISON STUDY: No priors. TECHNIQUE: Unenhanced axial CT scan of the brain is performed from the vertex to the skull base. A dose lowering technique was utilized adhering to the principles of ALARA. CT DOSE: 547.75 mGy.cm FINDINGS: Brain parenchyma: The brain parenchyma is normal in appearance. There is no hemorrhage, mass effect, or evidence of acute territorial ischemia by CT criteria. Smart-white matter differentiation is preserved. No extra-axial fluid collection is seen. Ventricles, sulci, cisterns: Normal in configuration. Intracranial vasculature: The visualized intracranial vasculature at the skull base is normal in appearance. Calvarium: Unremarkable. Sinuses and mastoids: The visualized paranasal sinuses are clear. The mastoid air cells are well pneumatized. Orbits: The bony orbits are grossly intact. IMPRESSION: No acute intracranial abnormality. ACT 112: Negative or not required by law. Electronically signed by: Tyson Person M.D. 04/28/2023 4:59 PM Discharge Instructions Given to Patient (Per Discharging Provider) Ms. Espinoza, You were admitted with very high blood pressure. We treated you with IV medications and you were seen by Cardiology. Your symptoms and blood pressure improved. Cardiology is recommending discharge with the medication losartan-hydrochlorothiazide 50-12.5mg daily. Please take it as prescribed and keep close follow up with your primary care provider and Cardiology after discharge. Please do not hesitate to come back to the emergency room should your symptoms return or worsen. It was a pleasure taking care of you while you were here. Total Time Total Time Spent Total Time Spent (In Minutes): > 30 minutes
--- NOTE | 2023-04-29 14:44 | Ultrasound Report ---
DOPPLER ULTRASOUND OF THE RENAL ARTERIES CLINICAL HISTORY: Hypertension. COMPARISON STUDY: Abdominal CT dated 08/15/2016 TECHNIQUE: Doppler sonography of the renal arteries was performed to assess renal artery stenosis. Im ages are reviewed in the transverse and longitudinal planes. FINDINGS: The kidneys appear normal in size and echotexture. The right kidney measures 10.4 cm in length and th e left kidney measures 9.8 cm in length. There is no hydronephrosis. On the right, intrarenal arterial resistive indices range from 0.44 to 0.50. Intrarenal arterial wave forms are normal with brisk upstrokes. The right renal arterial waveform is normal, and velocities wi thin the right renal artery measure up to 85 cm/sec. The right renal vein is patent. On the left, intrarenal arterial resistive indices range from 0.42 to 0.56. Intrarenal arterial wave forms are normal with brisk upstrokes. The left renal arterial waveform is normal, and velocities wit hin the left renal artery measure up to 68 cm/sec. The left renal vein is patent. The abdominal aorta is patent. Velocities within the abdominal aorta measure up to 55 cm/s. IMPRESSION: There is no sonographic evidence of renal artery stenosis. ACT 112: Negative or not required by law. Electronically signed by: Tyson Person M.D. 04/29/2023 2:43 PM
== END 2023-04-29 16:43 | disposition home or self-care (01) | DRG 305 ==
LOC: ED 15:54 → 4W 20:49